=== PATIENT | female | born 1940 | race Caucasian/White ===

== ENCOUNTER → 2016-12-11 | Outpatient (CLI) | payer BC ==
[~2016-12-11] MED LIST: ACET-1256 PO; ASPEC81 PO; ASPI-232 PO; ATEN50TA8 PO; CARBGEL OPB; CETI10TA84 PO; DICY1TAB25 PO; ISOS60TA25 PO; MISCCAP80 PO; NTRGSL/4 UT; POLY335025 PO; POLYSOL4 OP; PRAV80TA PO; PRLSR20 PO
[2016-12-11 10:10] LABS: CHOLESTEROL/HDL RATIO 2.8
[2016-12-11 10:22] LABS: ESTIMATED AVERAGE GLUCOSE 111 mg/dl; HA1C FLAG Normal (Normal)
== END | disposition home or self-care (01) ==
LOC: C.LAB 08:30
PROVIDERS: ATTEND Internal Medicine Cardiovascular Disease
DX: Z86.39 Personal history of other endocrine, nutritional and metabolic disease (principal); I10 Essential (primary) hypertension; R73.01 Impaired fasting glucose

== ENCOUNTER → 2017-02-01 | Outpatient (CLI) | payer BC ==
[2017-02-01 15:08] LABS: BLOOD UREA NITROGEN 20 mg/dl (7-18); BUN/CREATININE RATIO 20.7 (10-20); CALCIUM 8.7 mg/dl (8.5-10.1); CARBON DIOXIDE 29 mmol/L (21-32); CHLORIDE 108 mmol/L (98-107); CREATININE 0.94 mg/dl (0.60-1.20); GLUCOSE 102 mg/dl (70-99); POTASSIUM 4.2 mmol/L (3.5-5.1); SODIUM 142 mmol/L (136-145)
== END | disposition home or self-care (01) ==
LOC: C.LAB 13:13
PROVIDERS: ATTEND Internal Medicine
DX: I10 Essential (primary) hypertension (principal); Z12.31 Encounter for screening mammogram for malignant neoplasm of breast

== ENCOUNTER → 2017-02-01 | Outpatient (CLI) | payer BC ==
--- NOTE | 2017-02-01 16:05 | MAMMOGRAPHY REPORT ---
BILATERAL DIGITAL SCREENING MAMMOGRAM WITH CAD: 02/01/2017 CLINICAL HISTORY: Routine screening. Patient has no complaints. TECHNIQUE: Bilateral CC and MLO views were obtained. Current study was also evaluated with a Comput er Aided Detection (CAD) system. COMPARISON: Comparison is made to exams dated: 01/30/2016 mammogram, 01/26/2014 mammogram, 01/28/2015 mammogram, 01/21/2012 mammogram, 01/19/2011 mammogram, and 01/17/2010 mammogram - [facility]. BREAST COMPOSITION: There are scattered areas of fibroglandular density in both breasts. FINDINGS: There are moderate vascular calcifications in the breasts. A stable benign coarse calcifi cation in the right breast. No new suspicious mass, architectural distortion or cluster of microcal cifications is seen. IMPRESSION: ACR BI-RADS CATEGORY 1: NEGATIVE There is no mammographic evidence of malignancy. A 1 year screening mammogram is recommended. The p atient will receive written notification of the results. Approximately 10% of breast cancers are not detected with mammography. A negative mammographic repor t should not delay biopsy if a clinically suggestive mass is present. Aleah Chua M.D. ay/:02/01/2017 15:09:02 Roundsman: Demi VILLALBA(R)(M), [facility] letter sent: Normal 1/2 BI-RADS Code: ACR BI-RADS Category 1: Negative
== END | disposition home or self-care (01) ==
LOC: C.MAMM 14:50
PROVIDERS: ATTEND Obstetrics & Gynecology
DX: Z12.31 Encounter for screening mammogram for malignant neoplasm of breast (principal)

== ENCOUNTER → 2017-02-04 | Outpatient (CLI) | payer BC ==
[~2017-02-04] MED LIST changes: +OPTIRAY 320 IV PRN
--- NOTE | 2017-02-05 07:31 | DIAGNOSTIC IMAGING REPORT ---
CT SCAN OF THE ABDOMEN AND PELVIS WITH IV CONTRAST CLINICAL HISTORY: Chronic reflux esophagitis. Generalized diffuse abdominal pain. Nausea. COMPARISON STUDY: Abdominal CT dated 12/17/2007. TECHNIQUE: Following the IV administration of 93 cc of Optiray 320, CT scan of the abdomen and pelvis is performed from the lung bases to the proximal femora. Images are reviewed in the axial, sagittal, and coronal planes. IV contrast was administered without complication. Automated dose control exposure was utilized. CT DOSE: 530.01 mGycm FINDINGS: Lung bases: The heart is normal in size and without pericardial effusion. A 2 mm right middle lobe pulmonary nodule seen on image #1 is unchanged from 2008 and is of doubtful significance. Linear atelectasis versus scarring is present in the lower lobes. There is minimal dependent atelectasis. No airspace consolidation is seen typical for pneumonia and there is no pleural effusion. Liver: The contrast-enhanced liver is normal in size, contour, and attenuation. There is no intrahepatic biliary ductal dilatation. The hepatic veins and portal veins are patent. Gallbladder: Unremarkable. Spleen: Normal in size and attenuation. Pancreas: Moderately atrophic. Adrenal glands: Unremarkable. Kidneys: The contrast enhanced kidneys are atrophic and without hydronephrosis. A small extrarenal pelvis is noted bilaterally. The kidneys enhance symmetrically. Scattered subcentimeter cortical hypodensities likely represent cysts but are too small for definitive characterization. Abdominal vasculature: The abdominal aorta is normal in course and caliber noting moderate to advanced atherosclerotic calcification. Bowel: The small bowel and colon are normal in course and caliber. There is moderate colonic fecal retention. The appendix is well-visualized and normal. Peritoneum: There is no intraperitoneal free air or abdominal ascites. Lymphadenopathy: None. Pelvic viscera: The bladder, uterus, and adnexa are normal as visualized. Skeletal structures: The skeletal structures are osteopenic. There is mild to moderate lumbosacral spondylosis. No lytic or blastic lesions are seen. IMPRESSION: 1. There are no acute infectious or inflammatory findings in the abdomen or pelvis. 2. Moderate constipation. Electronically signed by: Kt Agudelo M.D. 02/04/2017 2:38 PM Dictated Date/Time: 02/04/2017 2:33 PM
== END | disposition home or self-care (01) ==
LOC: C.CTS 13:31
PROVIDERS: ATTEND Internal Medicine
DX: K21.0 Gastro-esophageal reflux disease with esophagitis (principal); R10.9 Unspecified abdominal pain; K59.00 Constipation, unspecified

== ENCOUNTER → 2017-02-10 | Outpatient (CLI) | payer BC ==
[~2017-02-10] MED LIST changes: -OPTIRAY 320 IV PRN
--- NOTE | 2017-02-10 09:08 | DIAGNOSTIC IMAGING REPORT ---
GI W/AIR SMALL BOWEL ROUTINE CLINICAL HISTORY: K21.0 Chronic reflux esophagitisdysphagia COMPARISON STUDY: None FLUOROSCOPY TIME: 3.8 minutes. FINDINGS: Patient initiates swallowing function well. Stomach is normal. No significant reflux. Duodenal bulb fills well and is negative for ulceration. The duodenal sweep is unremarkable. Mucosal pattern and transit time throughout small bowel are unremarkable. Spot films the terminal ileum are unremarkable. IMPRESSION: Normal study Electronically signed by: Joe Bejarano M.D. 02/10/2017 9:06 AM Dictated Date/Time: 02/10/2017 9:03 AM
== END | disposition home or self-care (01) ==
LOC: C.RAD 07:04
PROVIDERS: ATTEND Internal Medicine
DX: K21.0 Gastro-esophageal reflux disease with esophagitis (principal)

== ENCOUNTER → 2017-03-22 | Outpatient (CLI) | payer BC | END | disposition home or self-care (01) | LOC: C.PAPS 16:07 | PROVIDERS: ATTEND Obstetrics & Gynecology | DX: R10.2 Pelvic and perineal pain (principal) ==

== ENCOUNTER 2017-05-20 13:02 | Observation (INO) | payer BC ==
[~2017-05-20] VITALS: Ht 149.9 cm; Wt 60.2 kg
[~2017-05-20 13:02] MED LIST changes: -ASPI-232 PO
[2017-05-20] MEDS ORDERED: NITROGLYCERIN OINT 2% 1GM PACKET EXT ONE (13:45)
[2017-05-20 13:48] LABS: HEMATOCRIT 41.6 % (37-47); MEAN CELL VOLUME 95.9 fL (80-100); MEAN CORPUSCULAR HEMOGLOBIN 32.5 pg (25-34); MEAN CORPUSCULAR HGB CONC 33.9 g/dl (32-36); MEAN PLATELET VOLUME 10.4 fL (7.4-10.4); PLATELET COUNT 225 K/uL (130-400); RED BLOOD COUNT 4.34 M/uL (4.2-5.4); WHITE BLOOD COUNT 6.84 K/uL (4.8-10.8)
[2017-05-20 14:02] LABS: PROTHROMBIN TIME (PATIENT) 10.3 SECONDS (9.0-12.0)
--- NOTE | 2017-05-20 14:06 | DIAGNOSTIC IMAGING REPORT ---
CHEST ONE VIEW PORTABLE CLINICAL HISTORY: Chest pain. COMPARISON STUDY: Chest radiograph January 25, 2016. FINDINGS: Lung volumes are normal. There is no consolidation. Pulmonary vascularity is normal. Cardiac size is normal. Mediastinal contours are normal. There is no pneumothorax or pleural effusion. IMPRESSION: No acute cardiopulmonary findings. Electronically signed by: Pascual Day M.D. 05/20/2017 2:05 PM Dictated Date/Time: 05/20/2017 2:04 PM
[2017-05-20 14:10] LABS: BUN/CREATININE RATIO 13.9 (10-20); CALCIUM 8.7 mg/dl (8.5-10.1); CREATININE 0.91 mg/dl (0.60-1.20)
[2017-05-20 14:15] LABS: ALB/GLOB RATIO 0.9 (0.9-2)
[2017-05-20] MEDS ORDERED: ONDANSETRON INJ 2 MG/ML 2 ML VIAL IV STA (15:05)
[2017-05-20] MEDS ORDERED: FENTANYL CITRATE INJ 50 MCG/1 ML 2 ML VIAL IV STA (15:05)
[2017-05-20] MEDS ORDERED: ASPI-232 PO (15:09)
[2017-05-20] MEDS ORDERED: ACETAMINOPHEN 325 MG TAB PO PRN (16:15)
[2017-05-20] MEDS ORDERED: ONDANSETRON INJ 2 MG/ML 2 ML VIAL IV PRN (16:15)
[2017-05-20] MEDS ORDERED: ALUMINUM/MAGNESIUM/SIMETH (MAALOX MAX) 30 ML UDC PO PRN (16:15)
[2017-05-20] MEDS ORDERED: POLYETHYLENE (MIRALAX) 17 GM PACK PO PRN (16:15)
[2017-05-20] MEDS ORDERED: MAGNESIUM HYDROXIDE SUSP 30 ML UDC PO PRN (16:15)
--- NOTE | 2017-05-20 16:20 | History and Physical ---
History & Physical Date & Time of Service: May 20, 2017 at 16:20 Chief Complaint: Chest Pain Primary Care Physician: Jeferson Anthony M.D. History of Present Illness Source: patient Ms. Marcus is a 76 y/o female with PMHx of CAD S/P Stent x 3, HTN, GERD, and Irritable Bowel Syndrome-Constipation who presents to the ED c/o intermittent L- sided CP x 1 week. She states that this past week the pain has been in the L- side of the chest and is tight in quality. This past week the pain has been coming on with rest and she states it is not worsened with exertion. She states up until today this chest pain would only last a couple minutes and rasheed spontaneously. As well, her normal anginal pain would be easily relieved with her SL nitro. Today, the chest pain came on suddenly and radiated into her L jaw /face and into her L arm. She has associated tingling in the L lower face and upper arm. Denies motor dysfunction. She has taken a total of 4 nitroglycerin without relief. She reports a chronic cough related to post-nasal drip that is unchanged. She does note that she has had a hoarse voice for approx. 1 month. She is on acid reducing medication and reports that she normally doesn't have bad GERD. She does have a history of IBS-C and states she had an EGD in the past that didn't reveal much. She has no difficulty swallowing liquids or solids. at bedside reports increased stress as her brother just recently passed this week and patient did get teared up when discussing this. She denies fever/chills, SOB, N/V, abdominal pain, dysuria, diarrhea, melena/ hematochezia. In the ED, she is afebrile without leukocytosis. Initial troponin unremarkable. EKG with NSR with some PVCs and some nonspecific ST abnormalities. 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 Surgical Problems: (1) Percutaneous Translum Coron Angioplasty Status Status: Resolved Family History Cancer Diabetes mellitus FHx: gallbladder disease Heart disease Hypertension Lung disease Social History Smoking Status: Never Smoker Drug Use: none Marital Status: Occupational Status: retired Immunizations History of Influenza Vaccine: Yes History of Tetanus Vaccine?: Yes History of Pneumococcal: Yes Pneumococcal Date: Jan 31, 2010 History of Hepatitis B Vaccine: No Multi-Drug Resistant Organisms History of MDRO: No Allergies Coded Allergies: Acarides (Mites) (Verified Allergy, Unknown, 05/18/16) Dust (Verified Allergy, Unknown, 05/18/16) Tetracyclines (Verified Allergy, Unknown, 05/18/16) Morphine (Verified Adverse Reaction, Unknown, GI ISSUES, 05/18/16) Home Medications Scheduled Aspirin (Aspir-81), 1 TAB PO DAILY Atenolol (Tenormin), 50 MG PO QAM Carboxymethylcellulose-Hyprome (Genteal), 1 DOSE OPB HS Cetirizine (Zyrtec), 10 MG PO DAILY Dicyclomine HCl (Dicyclomine HCl), 20 MG PO DAILY Isosorbide Mononitrate Ext Rel (Imdur Ext Rel), 60 MG PO QAM Nitroglycerin (Nitrostat), 0.4 MG UT PRN Omeprazole (Prilosec), 20 MG PO BID Polyethylene Glycol 3350 (Miralax), 1 DOSE PO QAM Polyethylene Glycol-Propylene (Systane), 1 DROPS OP QID Pravastatin Sodium (Pravachol), 1 TAB PO HS Probiotic Product (Probiotic), 1 CAP PO QAM Scheduled PRN Acetaminophen (Tylenol), 500 MG PO DIRECTED PRN for Pain Review of Systems Constitutional: No fever, No chills Eyes: No worsening of vision ENT: + nasal symptoms (post-nasal drip - chronic), No sore throat, No trouble swallowing Respiratory: + cough, No shortness of breath Cardiovascular: + chest pain, No palpitations Abdomen: No pain, No nausea, No vomiting, No diarrhea, No constipation Musculoskeletal: + swelling (chronic ankle edema), No calf pain Genitourinary - Female: No dysuria Neurologic: + numbness/tingling (L face and into L arm) Hematologic / Lymphatic: No abnormal bleeding/bruising, No clotting problems Integumentary: No rash Physical Exam Vital Signs Date Time Temp Pulse Resp B/P (MAP) Pulse Ox O2 Delivery O2 Flow Rate FiO2 05/20/17 15:25 71 20 145/71 98 Room Air 05/20/17 14:29 72 20 162/80 99 Room Air 05/20/17 13:36 70 05/20/17 13:28 98 Room Air 05/20/17 13:28 73 16 157/90 98 Room Air 05/20/17 13:24 97 Room Air 05/20/17 13:20 98 Room Air 05/20/17 13:04 100 Room Air 05/20/17 13:03 36.9 83 17 196/95 100 Room Air General Appearance: WD/WN, no apparent distress Head: normocephalic, atraumatic Eyes: sclerae normal ENT: hearing grossly normal Neck: supple, no JVD, trachea midline Respiratory/Chest: lungs clear, normal breath sounds, no respiratory distress, no accessory muscle use, + pertinent finding (mild chest tenderness to palpation but did not reflect CP that brought her in) Cardiovascular: regular rate, rhythm, no gallop, no murmur Abdomen/GI: normal bowel sounds, non tender, soft Back: no CVA tenderness, no muscle spasm Extremities/Musculoskelatal: no calf tenderness, no pedal edema, + swelling ( minimal bilateral non-pitting edema of medial ankle) Neurologic/Psych: alert, oriented x 3 Skin: normal color, warm/dry, + pertinent finding (no erythema/vesicles overlying CP region) Diagnostics Laboratory Results Results Past 24 Hours Test 05/20/17 13:25 05/20/17 13:37 Range/Units White Blood Count 6.84 4.8-10.8 K/uL Red Blood Count 4.34 4.2-5.4 M/uL Hemoglobin 14.1 12.0-16.0 g/dL Hematocrit 41.6 37-47 % Mean Corpuscular Volume 95.9 80-100 fL Mean Corpuscular Hemoglobin 32.5 25-34 pg Mean Corpuscular Hemoglobin Concent 33.9 32-36 g/dl RDW Standard Deviation 44.0 36.4-46.3 fL RDW Coefficient of Variation 12.5 11.5-14.5 % Platelet Count 225 130-400 K/uL Mean Platelet Volume 10.4 7.4-10.4 fL Prothrombin Time 10.3 9.0-12.0 SECONDS Prothromb Time International Ratio 1.0 0.9-1.1 Activated Partial Thromboplast Time 25.7 21.0-31.0 SECONDS Partial Thromboplastin Ratio 1.0 Sodium Level 140 136-145 mmol/L Potassium Level 4.0 3.5-5.1 mmol/L Chloride Level 107 98-107 mmol/L Carbon Dioxide Level 27 21-32 mmol/L Anion Gap 6.0 3-11 mmol/L Blood Urea Nitrogen 13 7-18 mg/dl Creatinine 0.91 0.60-1.20 mg/dl Est Creatinine Clear Calc Drug Dose 40.7 ml/min Estimated GFR () 70.0 Estimated GFR (Non- 60.4 BUN/Creatinine Ratio 13.9 10-20 Random Glucose 127 70-99 mg/dl Calcium Level 8.7 8.5-10.1 mg/dl Total Bilirubin 0.8 0.2-1 mg/dl Aspartate Amino Transf (AST/SGOT) 20 15-37 U/L Alanine Aminotransferase (ALT/SGPT) 26 12-78 U/L Alkaline Phosphatase 64 45-117 U/L Total Creatine Kinase 80 26-192 U/L Creatine Kinase MB 0.8 0.5-3.6 ng/ml Creatine Kinase MB Ratio 1.0 0-3.0 Total Protein 7.5 6.4-8.2 gm/dl Albumin 3.5 3.4-5.0 gm/dl Globulin 4.0 2.5-4.0 gm/dl Albumin/Globulin Ratio 0.9 0.9-2 Bedside Troponin I < 0.030 0-0.045 ng/ml Diagnostic Radiology CHEST ONE VIEW PORTABLE CLINICAL HISTORY: Chest pain. COMPARISON STUDY: Chest radiograph January 25, 2016. FINDINGS: Lung volumes are normal. There is no consolidation. Pulmonary vascularity is normal. Cardiac size is normal. Mediastinal contours are normal. There is no pneumothorax or pleural effusion. IMPRESSION: No acute cardiopulmonary findings. EKG Sinus rhythm with occasional , and consecutive Premature ventricular complexes Abnormal ECG When compared with ECG of 20-MAY-2017 13:00, (unconfirmed) Premature ventricular complexes are now Present Impression Assessment and Plan Ms. Marcus is a 76 y/o female with PMHx of CAD S/P Stent x 3, HTN, GERD, and Irritable Bowel Syndrome-Constipation who presents to the ED c/o intermittent L- sided CP x 1 week. CP today is similar to the intermittent episodes that have occurred this week but today did not resolve and took 4 SL Nitros without relief Atypical Chest Pain with H/O CAD S/P Stent x 3: ACS vs Musculoskeletal vs GI ( IBS-C) vs Somatic (Stress) - Chest is minimally tender to palpation but states the pain was not the same as the CP she has been experiencing that brought her in. -- Denies GERD symptoms, MS symptoms, but does have IBS-C, chronic cough due to post-nasal drip, and voice hoarseness -- No overlying skin vesicles or erythema -- Given recent of her brother this may be somatic in setting of stress - Given CAD history will R/O with telemetry monitoring and serial cardiac enzymes - Cath report reviewed which showed moderate CAD - NSS at 80 mL/hr - ASA 81 mg daily - Imdur 60 mg daily - Pravastatin 80 mg daily - Consult cardiology - recommendations for stress testing or intervention -- Patient reports she cannot do the treadmill and had a dobutamine stress in the past - had cath in 2016 HTN: - Atenolol 50 mg daily GERD: - Protonix 40 mg BID IBS-C: - Miralax daily and Bentyl 20 mg daily PRN DVT Prophylaxis: Lovenox daily Code Status: FULL RESUSCITATION Disposition: Likely home tomorrow - unsure if stress testing is necessary and will await cardiology input given CAD history Resident Physician Supervision Note: I was present with Anali CERVANTES during the history and exam. I discussed the case with the PA, pt and at bedside and agree with the findings and plan as documented in the note. Any exceptions or clarifications are listed here: 76 y/o F with diffuse CAD, previous stents - presents with intermittent CP x 1 week - progressive and occurs at rest or with exertion - admits to SOB - denies N/V/diaphoresis OE Emotionally distressed elderly F AAO x 3 S1,2 R CTAB NT, ND, BS + No CCE P: Monitor on tele with serial trops - utility of stress test unclear as pain is ongoing and she has a clear histiry of CAD - we will therefore consult cardiology for further recs Cont Atenolol for HTN Documented By: Kevin Hurtado Level of Care Telemetry Resuscitation Status FULL RESUSCITATION VTE Prophylaxis VTE Risk Assessment Done? Y/N: Yes Risk Level: Moderate Given or contraindicated: Enoxaparin (Lovenox)SQ, T.E.D. Stockings, SCD's
[2017-05-20 16:47] VITALS: O2SAT 98
--- NOTE | 2017-05-20 18:00 | EMERGENCY ROOM VISIT NOTE ---
History Report prepared by Herminio: Kristine Yepez Under the Supervision of: Dr. Morgan Newby M.D. First contact with patient: 13:28 Chief Complaint: CHEST PAIN Stated Complaint: CHEST PAIN Nursing Triage Summary: off and on for a week made her come. states substernal with pain in the left arm and neck into jaw and back. states she takes a NtG and it would go away but would come back has taken 4 SL today. pain came on when sitting and moving. continues to have pain in the chest and left side History of Present Illness The patient is a 76 year old female who presents to the Emergency Room with complaints of intermittent chest pain beginning 1 week ago. She describes the pain as being tight and rates it at a 1/10 right now. The patient reports that she takes nitroglycerin for her chest pain and that it usually goes away. She reports that she has a chronic cough for years and always have ankle swelling. The patient denies fevers, cold-like symptoms, and shortness of breath. The patient also reports that she has a stent placed but still has 4 other arteries with blockages. Source of History: patient Onset: 1 week ago Position: chest Symptom Intensity: rated at a 1/10 Quality: other (tight ) Timing: intermittent Modifying Factors (Relieving): other (nitroglycerin) Associated Symptoms: + cough (chronic ), No fevers, No SOB Note: additional symptom: chronic ankle swelling also denies: cold-like symptoms Review of Systems See HPI for pertinent positives & negatives. A total of 10 systems reviewed and were otherwise negative. Past Medical & Surgical Medical Problems: (1) Angina Pectoris Nec/Nos (2) CAD (coronary artery disease) (3) Chr Ischemic Hrt Dis Nos (4) Coron Atheroscler Nos Type Vessel, [place] (5) Esophageal Reflux (6) Hypertension Nos (7) Hypothyroidism Nos (8) Irritable Bowel Syndrome (9) Lumbago (10) Mixed Hyperlipidemia (11) Old Myocardial Infarct (12) Osteoporosis Nos (13) Periph Vascular Dis Nos Surgical Problems: (1) Percutaneous Translum Coron Angioplasty Status Family History Cancer Diabetes mellitus FHx: gallbladder disease Heart disease Hypertension Lung disease Social History Smoking Status: Never Smoker Alcohol Use: none Drug Use: none Marital Status: Housing Status: lives with significant other Occupation Status: retired Current/Historical Medications Scheduled Aspirin (Aspir-81), 1 TAB PO DAILY Atenolol (Tenormin), 50 MG PO QAM Carboxymethylcellulose-Hyprome (Genteal), 1 DOSE OPB HS Cetirizine (Zyrtec), 10 MG PO DAILY Dicyclomine HCl (Dicyclomine HCl), 20 MG PO DAILY Isosorbide Mononitrate Ext Rel (Imdur Ext Rel), 60 MG PO QAM Nitroglycerin (Nitrostat), 0.4 MG UT PRN Omeprazole (Prilosec), 20 MG PO BID Polyethylene Glycol 3350 (Miralax), 1 DOSE PO QAM Polyethylene Glycol-Propylene (Systane), 1 DROPS OP QID Pravastatin Sodium (Pravachol), 1 TAB PO HS Probiotic Product (Probiotic), 1 CAP PO QAM Scheduled PRN Acetaminophen (Tylenol), 500 MG PO DIRECTED PRN for Pain Allergies Coded Allergies: Acarides (Mites) (Verified Allergy, Unknown, 05/18/16) Dust (Verified Allergy, Unknown, 05/18/16) Tetracyclines (Verified Allergy, Unknown, 05/18/16) Morphine (Verified Adverse Reaction, Unknown, GI ISSUES, 05/18/16) Physical Exam Vital Signs Date Time Temp Pulse Resp B/P (MAP) Pulse Ox O2 Delivery O2 Flow Rate FiO2 05/20/17 16:02 75 14 99 05/20/17 16:01 151/99 05/20/17 15:47 70 13 99 05/20/17 15:32 75 14 99 05/20/17 15:25 71 20 145/71 98 Room Air 05/20/17 15:17 70 15 99 05/20/17 15:02 69 13 97 05/20/17 15:01 145/71 05/20/17 14:47 67 16 98 05/20/17 14:32 67 18 05/20/17 14:29 72 20 162/80 99 Room Air 05/20/17 14:17 77 21 97 05/20/17 14:02 74 13 98 05/20/17 14:01 162/80 05/20/17 13:47 70 17 97 05/20/17 13:36 70 05/20/17 13:32 99 14 05/20/17 13:28 98 Room Air 05/20/17 13:28 73 16 157/90 98 Room Air 05/20/17 13:27 157/90 05/20/17 13:24 97 Room Air 05/20/17 13:20 98 Room Air 05/20/17 13:04 100 Room Air 05/20/17 13:03 36.9 83 17 196/95 100 Room Air Physical Exam Constitutional: Vital signs reviewed. Eyes: Pupils are equal round reactive to light. Conjunctiva are noninjected. ENT: Pharynx is clear without erythema or exudate. Mucous membranes are moist. Neck supple without meningeal signs. Respiratory: Clear to auscultation bilaterally. Breath sounds are equal bilaterally. Cardiovascular: Regular rate and rhythm. No rubs or gallops. GI: Soft, nondistended and nontender. Bowel sounds are present. Musculoskeletal: No peripheral edema. No lower extremity tenderness. Integumentary: No cyanosis. Neurological: The patient is awake and alert. No focal deficits. Psychiatric: Normal affect. Medical Decision & Procedures ER Provider Diagnostic Interpretation: X-ray results as stated below per interpretation by me and the radiologist: CHEST ONE VIEW PORTABLE CLINICAL HISTORY: Chest pain. COMPARISON STUDY: Chest radiograph January 25, 2016. FINDINGS: Lung volumes are normal. There is no consolidation. Pulmonary vascularity is normal. Cardiac size is normal. Mediastinal contours are normal. There is no pneumothorax or pleural effusion. IMPRESSION: No acute cardiopulmonary findings. Electronically signed by: Pascual Day M.D. 05/20/2017 2:05 PM Dictated Date/Time: 05/20/2017 2:04 PM Laboratory Results 05/20/17 13:25 05/20/17 13:25 Test 05/20/17 13:25 05/20/17 13:37 Red Blood Count 4.34 M/uL (4.2-5.4) Mean Corpuscular Volume 95.9 fL (80-100) Mean Corpuscular Hemoglobin 32.5 pg (25-34) Mean Corpuscular Hemoglobin Concent 33.9 g/dl (32-36) RDW Standard Deviation 44.0 fL (36.4-46.3) RDW Coefficient of Variation 12.5 % (11.5-14.5) Mean Platelet Volume 10.4 fL (7.4-10.4) Prothrombin Time 10.3 SECONDS (9.0-12.0) Prothromb Time International Ratio 1.0 (0.9-1.1) Activated Partial Thromboplast Time 25.7 SECONDS (21.0-31.0) Partial Thromboplastin Ratio 1.0 Anion Gap 6.0 mmol/L (3-11) Est Creatinine Clear Calc Drug Dose 40.7 ml/min Estimated GFR () 70.0 Estimated GFR (Non- 60.4 BUN/Creatinine Ratio 13.9 (10-20) Calcium Level 8.7 mg/dl (8.5-10.1) Total Bilirubin 0.8 mg/dl (0.2-1) Aspartate Amino Transf (AST/SGOT) 20 U/L (15-37) Alanine Aminotransferase (ALT/SGPT) 26 U/L (12-78) Alkaline Phosphatase 64 U/L (45-117) Total Creatine Kinase 80 U/L (26-192) Creatine Kinase MB 0.8 ng/ml (0.5-3.6) Creatine Kinase MB Ratio 1.0 (0-3.0) Total Protein 7.5 gm/dl (6.4-8.2) Albumin 3.5 gm/dl (3.4-5.0) Globulin 4.0 gm/dl (2.5-4.0) Albumin/Globulin Ratio 0.9 (0.9-2) Bedside Troponin I < 0.030 ng/ml (0-0.045) Laboratory results as reviewed by me. Medications Administered Medications (Trade) Dose Ordered Sig/Basim Route Start Time Stop Time Status Last Admin Dose Admin Nitroglycerin (Nitroglycerin 2% Oint) 1 inch NOW ONCE EXT 05/20/17 13:45 05/20/17 13:46 DC 05/20/17 14:28 1 INCH Fentanyl Citrate (Fentanyl Inj) 25 mcg NOW STAT IV 05/20/17 15:05 05/20/17 15:07 DC 05/20/17 15:45 25 MCG Ondansetron HCl (Zofran Inj) 4 mg NOW STAT IV 05/20/17 15:05 05/20/17 15:07 DC 05/20/17 15:45 4 MG ECG Indication: chest pain Rate (beats per minute): 79 Rhythm: normal sinus Findings: ST depression (slight ST depressions in V5 and V6), no ectopy Comparison ECG Date: Change: comparison ECG: sinus rhythm, 73, minimal ST depressions in V5 and V6 unchanged from prior ED Course 1340: The patient was evaluated in room C5. A complete history and physical exam was performed. 1345: Ordered Nitroglycerin 1 inch EXT. 1505: Ordered Ondansetron HCl 4 mg IV, Fentanyl Inj 25 mcg IV. 1510: I spoke with Dr. Hurtado. We discussed the patient and her results. 1530: The patient says that she still has a little bit of pain. 1540: The patient will be further evaluated by Dr. Hurtado. Medical Decision This is a 76-year-old female who presents with chest pain. Differential diagnosis includes unstable angina, NE, pleurisy, GERD, pneumonia. I did perform a limited focused review of portions of the patient's old chart on the electronic medical record. The patient has had no recent pertinent visits to this hospital. Blood Pressure Screening: Patient was found to have an elevated blood pressure and was referred to their primary doctor for recheck and further treatment. Medication Reconciliation: I attest that I have personally reviewed the patient' s current medication list. I did evaluate the patient as noted above. The patient has a history of CAD and stent. She is presenting with exertional chest pain relieved with nitroglycerin. She did have nitroglycerin prior to arrival but complains of 110 chest pain. IV access was established. The patient was placed on a continuous fisheries officer. I did treat her with nitroglycerin paste. I did order and personally review the patient's 12-lead EKG and chest x-ray as described above. Her twelve-lead EKG demonstrates some minimal ST depressions in leads V5 and V6. I did order and review the patient's blood work as noted in the electronic medical record. Initial troponin is negative. I did reassess the patient. She continues to have very minimal chest pain. A repeat EKG was performed which per my interpretation shows no changes from her prior EKG. She was given fentanyl and Zofran IV. I did discuss the test results with the patient. I did recommend hospitalization. I did discuss case with the hospitalist and renal case manager. Consults Time Called: 1430 Consulting Physician: Dr. Hurtado Returned Call: [address] Hurtado. We discussed the patient and her results. The patient will be further evaluated by Dr. Hurtado. Impression Primary Impression: Acute chest pain Additional Impression: Abnormal ECG Scribe Attestation The scribe's documentation has been prepared under my direct and personally reviewed by me in its entirety. I confirm that the note above accurately reflects all work, treatment, procedures, and medical decision making performed by me. Departure Information Dispostion Being Evaluated By Hospitalist Referrals Jeferson Anthony M.D. (PCP) Patient Instructions [facility] Problem Qualifiers
[2017-05-20 19:04] VITALS: BP 139/77; TEMP 36.9; Ht 149.9 cm; Wt 60.2 kg
[2017-05-20 19:06] VITALS: BP 162/85; PULSE 71; TEMP 37.1; O2SAT 98
[2017-05-20] MEDS ORDERED: ENOXAPARIN 40 MG/0.4 ML SYR SC SCH (20:00)
[2017-05-20] MEDS: SODIUM CHLORIDE 0.9% 1000ML 1,000 ML IV SCH (20:38)
[2017-05-20] MEDS: PANTOprazole SOD 40 MG TAB PO SCH (20:39)
[2017-05-20] MEDS: ARTIFICIAL TEARS OP SOLN OP SCH ×4 (20:39→20:41)
[2017-05-20] MEDS ORDERED: PRAVASTATIN SOD 40 MG TAB PO SCH (21:00)
[2017-05-20] MEDS ORDERED: PANTOprazole SOD 40 MG TAB PO SCH (21:00)
[2017-05-20] MEDS ORDERED: POLYETHYLENE (MIRALAX) 17 GM PACK PO SCH (21:00)
[2017-05-20 23:35] VITALS: BP 154/72; PULSE 77; TEMP 36.9; O2SAT 96
[2017-05-21] MEDS: NITROGLYCERIN 0.4 MG SL PER TAB CHARGE SL PRN ×2 (03:55→04:04)
[2017-05-21 04:00] VITALS: BP 148/76; PULSE 70; TEMP 37; O2SAT 95
[2017-05-21] MEDS ORDERED: NURSING VERBAL MED ORDER ONE (05:15)
[2017-05-21] MEDS: SODIUM CHLORIDE 0.9% 1000ML 1,000 ML IV SCH (06:20)
[2017-05-21] MEDS: NITROGLYCERIN OINT 2% 1GM PACKET EXT SCH ×2 (06:21→14:10)
[2017-05-21 06:50] LABS: MEAN CELL VOLUME 94.2 fL (80-100); MEAN CORPUSCULAR HEMOGLOBIN 32.1 pg (25-34); MEAN CORPUSCULAR HGB CONC 34.1 g/dl (32-36); MEAN PLATELET VOLUME 10.3 fL (7.4-10.4); PLATELET COUNT 212 K/uL (130-400); RED BLOOD COUNT 4.14 M/uL (4.2-5.4); WHITE BLOOD COUNT 5.47 K/uL (4.8-10.8)
[2017-05-21 07:16] LABS: BUN/CREATININE RATIO 12.4 (10-20); CALCIUM 8.4 mg/dl (8.5-10.1); CREATININE 0.88 mg/dl (0.60-1.20); POTASSIUM 3.7 mmol/L (3.5-5.1)
[2017-05-21 07:26] VITALS: BP 134/74; PULSE 69; TEMP 37.1; O2SAT 97
[2017-05-21 07:26] LABS: THYROID STIMULATING HORMONE 1.69 uIu/ml (0.300-4.500)
[2017-05-21] MEDS: PANTOprazole SOD 40 MG TAB PO SCH (08:22)
[2017-05-21] MEDS: ARTIFICIAL TEARS OP SOLN OP SCH ×4 (08:27→14:09)
[2017-05-21] MEDS ORDERED: ASPIRIN 81 MG ECTAB PO SCH ×2 (09:00)
[2017-05-21] MEDS ORDERED: DICYCLOMINE HCL 20 MG TAB PO PRN (09:00)
[2017-05-21] MEDS ORDERED: LACTOBACILLUS ACIDOPHILUS (FLORANEX) TAB PO SCH (09:00)
[2017-05-21] MEDS ORDERED: DICYCLOMINE HCL 20 MG TAB PO SCH (09:00)
[2017-05-21] MEDS ORDERED: CETIRIZINE HCL 10 MG TAB PO SCH (09:00)
[2017-05-21] MEDS ORDERED: ISOSORBIDE MONONITRATE 60 MG TABCR PO SCH (09:00)
[2017-05-21 11:29] VITALS: BP 149/73; PULSE 65; TEMP 36.5; O2SAT 98
--- NOTE | 2017-05-21 12:17 | Cardiology Consultation ---
Cardiology Consultation Date of Service May 21, 2017. Cardiology Consultation Pertinent history Mrs. Marcus is a 76-year-old white female well known to me from the outpatient setting. The patient was admitted yesterday with a chest pain syndrome. This consultation was ordered to assist in her cardiac management. The patient's recent history began several weeks ago when she began to notice and intermittent left-sided chest discomfort. This would typically last for several minutes and had no other associated symptoms such as shortness of breath , nausea, vomiting, diaphoresis, or radiation of the discomfort. On the day of presentation, her left-sided chest discomfort became persistent. It radiated to her left neck, jaw, and down her left arm. She had no other associated symptoms. She attempted use of nitroglycerin, however, this did not improve her pain. Therefore, she presented to the emergency room for further care. Total duration of her discomfort was at least 20 hours. The patient has been under a great deal of emotional stress since late April as her brother . She feels that her chest pain syndrome could be related to her stress and anxiety levels. The patient's cardiac history began in the year 1999 when she presented with an acute coronary syndrome and had a stent placed in the mid LAD. She underwent a repeat cardiac catheterization in January 2016 which noted a 30 percent in stent restenosis. She had a 70 percent proximal 1st diagonal stenosis, a 20 percent proximal and 50 percent mid LCx stenosis, a 70 percent OM1 stenosis, and luminal irregularities in the proximal RCA. The patient has a chronic atypical chest pain syndrome. However, her anginal equivalent is typically left arm discomfort. The patient explains that her chest discomfort as described above resolved completely with the administration of topical nitropaste. Currently, she is resting comfortably in bed without complaints. Past medical history 1. Coronary artery disease-see above 2. LAD stent-April 2000 3. Chronic atypical chest pain syndrome 4. Anginal equivalent-left arm discomfort 5. Hypertension 6. Hypercholesterolemia 7. Hyperglycemia 8. GERD 9. Irritable bowel syndrome 10. CC 8 cervical radiculopathy 11. Lumbar spinal stenosis 12. Raynaud's phenomena 13. Rosacea 14. Allergic rhinitis 15. Osteoporosis 16. Ovarian cyst removal 17. History of D&C Medications 1. Atenolol 50 mg per day 2. Imdur 60 mg per day 3. Pravastatin 80 mg q.h.s. 4. Aspirin 81 mg daily 5. Lovenox 40 mg subcu daily 6. Nitropaste 1 inch q.6 hours 7. Protonix 40 milligrams b.i.d. 8. Zyrtec 10 mg daily 9. Floranex 4 tablets daily Allergies 1. Plavix-hives 2. Tetracyclines-hives Social history and lives with her No tobacco or alcohol Family history Positive for early coronary artery disease in her father Review of systems A 10 point review of systems was negative except for that described above. Physical examination Blood pressure is 134/74 with a regular pulse of 70. Respiratory rate is 18 and the patient is afebrile 37.1 degree Celsius. Saturation 97 percent on room air. HEENT exam is negative. Neck is supple with full carotid upstrokes. There are no carotid bruits. Jugular venous pressure is flat at 90 degrees. There is no thyromegaly. Cardiovascular exam reveals a regular rhythm with a normal S1 and S2. No S3, S4, or murmurs are noted. Lungs are clear without rales, rhonchi, or wheezes. Abdomen is soft and nontender without bruits. Extremities reveal intact radial artery and posterior tibial pulses bilaterally. There is no peripheral edema. Data CBC note hemoglobin of 13.3, hematocrit 39.0, white count 5.4, platelet count [id number]. Electrolytes showed a sodium of 140, potassium 3.7, chloride 110, bicarb 26, BUN 11, creatinine 0.8, glucose of 90. Three separate troponin I levels are undetectable at less than 0.015. Chest x-ray shows no acute disease. EKG notes normal sinus rhythm with a nonspecific ST abnormality. One of 3 tracings did show a PVC. Impression The patient is stable from a cardiovascular standpoint. Doubt that her chest pain syndrome represents myocardial ischemia as her troponin I level is undetectable, and her EKG shows no acute changes. However, she did note left arm discomfort which is her typical anginal equivalent. Recommend a stress echocardiogram to rule out significant myocardial ischemia. Plan 1. Continue current medications. 2. Stress echocardiogram on medications 3. Further recommendations depending on results of the stress test. Duration of the visit was greater than 45 minutes. More than 50 percent of the time was spent in counseling and education.
--- NOTE | 2017-05-21 15:27 | Discharge Instructions ---
Discharge Instructions Date of Service May 21, 2017. Admission Reason for Admission: Chest Pain Discharge Discharge Diagnosis / Problem: Chest pain, negative stress test Discharge Goals Goal(s): Improve function, Increase independence Activity Recommendations Activity Limitations: resume your previous activity Lifting Limitations: none Exercise/Sports Limitations: as tolerated May Resume Sexual Activity: when tolerated Shower/Bathe: no limitations Driving or Machine Use: no limitations . Instructions / Follow-Up Instructions / Follow-Up Medications: resume all prior home medications Chest pain: normal EKG, negative cardiac enzymes x 3 sets, negative stress test , cleared by cardiology for discharge FOLLOW UP - Dr. Anthony as previously scheduled, call for earlier appointment if chest pain continues to be an issue Current Hospital Diet Patient's current hospital diet: AHA Diet (Heart Healthy), Low Sodium Diet (2gm Na) Discharge Diet Recommended Diet: AHA Diet (Heart Healthy), Low Sodium Diet (2gm Na) Pending Studies Studies pending at discharge: no Laboratory Results Lipid Panel Test 05/21/17 06:28 Range/Units Triglycerides Level 88 0-150 mg/dl Cholesterol Level 166 0-200 mg/dl HDL Cholesterol 55 mg/dl Cholesterol/HDL Ratio 3.0 LDL Cholesterol, Calculated 93 mg/dl Medical Emergencies . Who to Call and When: Medical Emergencies: If at any time you feel your situation is an emergency, please call 911 immediately. . Non-Emergent Contact Non-Emergency issues call your: Primary Care Provider Call Non-Emergent contact if: you have any medication questions . . "Provider Documentation" section prepared by Phu Mora. . VTE Core Measure Inpt VTE Proph given/why not?: Enoxaparin (Lovenox)Alex KELLOGG, SCD's [place] Drug Monitoring Program Search Results: no issues identified
[2017-05-21 16:01] VITALS: BP 149/73; PULSE 65; TEMP 36.5; O2SAT 98
--- NOTE | 2017-05-21 17:16 | EXERCISE STRESS ECHO ---
*NOTICE TO RECEIVING CONSTITUTION PARTY AGENCY This information is strictly Confidential and protected under [place] law. [place] law prohibits you from making any further disclosure of this information unless further disclosure is expressly permitted by the written consent of the person to whom it pertains or is authorized by law. A general authorization for the release of medical or other information is not sufficient for this purpose. Hospital accepts no responsibility if the information is made available to any other person, INCLUDING THE PATIENT. Interpretation Summary * Name: GEENA ALVES Study Date: 05/21/2017 12:01 PM BP: 139/80 mmHg * Patient Location: C.2T\S\S241\S\1 HR: 65 * : 1940 (M/d/yyy) Gender: Female Height: 59 in * Age: 76 yrs Ethnicity: [place] Weight: 132 lb * Ordering Physician: Adalberto Carlson * Referring Physician: MEME * Performed By: Cassandra Andre RDCS * * Reason For Study: CHEST PAIN * BSA: 1.5 m2 * -- Conclusions -- * Stress Echo: * 1. No ischemic changes noted on stress echo at 81% MPHR. Cannot rule out ischemic changes at faster heart rates. Target heart rate was not attained. * 2. Abnormal exercise stress ECG at 81% MPHR, as noted below. * 3. Chest pain was present prior to exercise and remained constant throughout without worsening. * 4. No arrhythmia. * 5. Blunted blood pressure response to exercise. * 6. Good exercise tolerance. * Echo: * 1. Normal left ventricular size and systolic function. No definite wall motion abnormalities. EF 60-65%. No left ventricular hypertrophy. Type 1 diastolic dysfunction. * 2. Aortic valve sclerosis mild, without significant aortic valvular stenosis. * 3. There is mild to moderate mitral regurgitation. * 4. There is mild to moderate tricuspid regurgitation. * 5. Compared to prior study on 02/07/2015, wall motion appears similar. Mitral regurgitation now appears mild to moderate Procedure Details * ECHOEX, CPT #73219 Left Ventricle * The left ventricle is normal in size. * There is normal left ventricular wall thickness. * Left ventricular systolic function is normal. * The left ventricular ejection fraction increases normally with stress. The left ventricular end-systolic cavity size reduces post-stress (normal response). The left ventricular wall motion with stress is normal. * The basal anteroseptum appears akinetic in some views, however in other views it appears to have normal contractility, and thus appears to be artifactual. Overall, wall motion otherwise appears to be normal both in rest and stress images. Right Ventricle * The right ventricle is normal in size and function. * The right ventricular systolic function is normal as assessed by tricuspid annular plane systolic excursion (TAPSE) (normal >1.5 cm). Atria * The left atrial size is normal. * Right atrial size is normal. * There is no evidence of atrial septal defect, but resolution does not allow assessment for a patent foramen ovale. Mitral Valve * The mitral valve is grossly normal. * There is no mitral valve stenosis. * There is mild to moderate mitral regurgitation. Tricuspid Valve * The tricuspid valve is not well visualized, but is grossly normal. * There is no tricuspid stenosis. * There is mild to moderate tricuspid regurgitation. Aortic Valve * The aortic valve is trileaflet. * Aortic valve sclerosis mild, without significant aortic valvular stenosis. * No hemodynamically significant valvular aortic stenosis. * No aortic regurgitation is present. Pulmonic Valve * The pulmonary valve is inadequately visualized, but the Doppler data is adequate for interpretation. * There is no significant pulmonary regurgitation. Great Vessels * The aortic root is normal size. * Normal pulmonary venous flow pattern. Normal IVC size and respiratory collapse. Pericardium * There is no pericardial effusion. Stress Parameters * NSR 64 bpm. * No arrhythmia were noted with stress. * 0.5 -1 mm horizontal and upsloping ST depression in II, III, aVF, V5, and V6. ST segments returned to baseline by approximatedly 4 min 15 seconds into recovery. * Rest heart rate was '65' BPM. * Rest blood pressure was '139/80' * Maximum heart rate achieved was 116 bpm. * Maximum heart rate was 81 % of maximum age-predicted heart rate. * Maximum blood pressure was '148/78' * Total exercise time was '7:06' * Maximum exercise MET level achieved was '8.70' METS * Maximum treadmill speed was '3.40' miles per hour. * Maximum treadmill elevation was '14.00'% grade. * Exercise was terminated due to 'ACHIEVING TARGET HR' * Blunted blood pressure response to exercise. Left Ventricular Diastolic Function * Grade I diastolic dysfunction, (abnormal relaxation pattern). MMode 2D Measurements and Calculations IVSd 0.95 cm IVSs 1.0 cm LVIDd 5.0 cm LVPWd 0.89 cm LVPWs 1.3 cm IVS/LVPW 1.1 EDV(Teich) 117.5 ml EDV(cubed) 124.0 ml % IVS thick 4.8 % % LVPW thick 45.6 % LV mass(C)d 162.7 grams LV mass(C)dI 105.3 grams/m\S\2 Ao root diam 2.9 cm Ao root area 6.5 cm\S\2 LA dimension 2.9 cm LA/Ao 1.0 LVAd ap4 22.7 cm\S\2 LVLd ap4 6.8 cm EDV(MOD-sp4) 63.8 ml EDV(sp4-el) 63.9 ml LVAs ap4 13.0 cm\S\2 LVLs ap4 5.9 cm ESV(MOD-sp4) 28.0 ml ESV(sp4-el) 24.6 ml EF(MOD-sp4) 56.1 % EF(sp4-el) 61.4 % LVAd ap2 24.1 cm\S\2 LVLd ap2 7.5 cm EDV(MOD-sp2) 68.8 ml EDV(sp2-el) 65.9 ml LVAs ap2 13.3 cm\S\2 LVLs ap2 6.1 cm ESV(MOD-sp2) 26.4 ml ESV(sp2-el) 24.3 ml EF(MOD-sp2) 61.7 % EF(sp2-el) 63.1 % LVLd %diff 8.4 % EDV(MOD-bp) 68.4 ml LVLs %diff 4.6 % ESV(MOD-bp) 27.2 ml EF(MOD-bp) 60.2 % SV(MOD-sp4) 35.8 ml SI(MOD-sp4) 23.2 ml/m\S\2 SV(MOD-sp2) 42.4 ml SI(MOD-sp2) 27.4 ml/m\S\2 SV(MOD-bp) 41.2 ml SI(MOD-bp) 26.6 ml/m\S\2 SV(sp4-el) 39.2 ml SI(sp4-el) 25.4 ml/m\S\2 SV(sp2-el) 41.6 ml SI(sp2-el) 26.9 ml/m\S\2 Doppler Measurements and Calculations MV E max art 87.3 cm/sec MV A max art 106.7 cm/sec MV E/A 0.82 MV dec time 0.15 sec Ao V2 max 158.1 cm/sec Ao max PG 10.0 mmHg Ao max PG (full) 5.3 mmHg LV V1 max PG 4.7 mmHg LV V1 max 108.3 cm/sec TV E max art 49.2 cm/sec TR max art 246.3 cm/sec RVSP(TR) 27.4 mmHg RAP systole 3.0 mmHg
== END 2017-05-21 16:30 | disposition home or self-care (01) ==
LOC: C.EDB 13:03 → C.2T 16:16 → ENRESERV 16:58
PROVIDERS: ADMIT Internal Medicine; ATTEND Internal Medicine
DX: R07.9 Chest pain, unspecified (principal); I25.119 Atherosclerotic heart disease of native coronary artery with unspecified angina pectoris; I10 Essential (primary) hypertension; K21.9 Gastro-esophageal reflux disease without esophagitis; E03.9 Hypothyroidism, unspecified; K58.9 Irritable bowel syndrome, unspecified; M54.5 Low back pain; E78.2 Mixed hyperlipidemia; I25.2 Old myocardial infarction; M81.0 Age-related osteoporosis without current pathological fracture; I73.9 Peripheral vascular disease, unspecified; Z79.82 Long term (current) use of aspirin; Z79.899 Other long term (current) drug therapy; Z95.5 Presence of coronary angioplasty implant and graft

== ENCOUNTER → 2017-09-06 | Outpatient (CLI) | payer BC ==
[~2017-09-06] MED LIST changes: -ASPEC81 PO; +ASPI-232 PO
== END | disposition home or self-care (01) ==
LOC: C.MAMM 09:09
PROVIDERS: ATTEND Internal Medicine
DX: M81.0 Age-related osteoporosis without current pathological fracture (principal)

== ENCOUNTER → 2017-10-12 | Outpatient (CLI) | payer BC ==
--- NOTE | 2017-10-14 11:02 | CODING QUERY MEDICAL NECESSITY ---
CQTREATMENT RENDERED WITHOUT A DIAGNOSIS To promote full compliance with coding requirements relating to patient care, physician participation is requested in all cases of certified medical coder uncertainty. Please assist us with providing a diagnosis/symptom for the test(s) below: A diagnosis/symptom was not documented on your Order. A valid diagnosis/symptom is required to bill all insurances. Please remember that we are unable to code a diagnosis of rule out, probable, possible, questionable, or suspected. Tests that require a diagnosis: DOS 10/12/17 VITAMIN B12 TEST WESTERN BLOT LYME TEST Provider Signature: Date: Thank you Mariela [facility] Once completed, please kindly fax back to [phone] For questions please call [phone]
--- NOTE | 2017-11-16 07:14 | CODING QUERY MEDICAL NECESSITY ---
CQSUPPORTING DIAGNOSIS NEEDED A supporting diagnosis is required for the test/procedure performed on this patient in order for us to be reimbursed by the patient's insurance. Please provide a supporting diagnosis for the following test/procedure listed below next to the test name along with your signature. *If there is no additional diagnosis for this patient that would support the following test/procedure please document that below next to the test/procedure. Test(s)/Procedure(s) that require a supporting diagnosis: LAURIE 10/12/17 VITAMIN B12 TEST Provider Signature: Date: Thank you Mariela [facility] Once completed, please kindly fax back to [phone] For questions please call [phone]
== END | disposition home or self-care (01) ==
LOC: C.LABBC 14:32
PROVIDERS: ATTEND Internal Medicine
DX: G62.9 Polyneuropathy, unspecified (principal)

== ENCOUNTER → 2017-11-15 | Outpatient (CLI) | payer BC ==
--- NOTE | 2017-11-15 12:27 | DIAGNOSTIC IMAGING REPORT ---
MRI LUMBAR SPINE W/O CONTRAST CLINICAL HISTORY: Low back pain. Spinal stenosis. Left leg radiculopathy. TECHNIQUE: Sagittal and axial T1, T2 and STIR images were obtained. COMPARISON STUDY: No previous studies for comparison. OBSERVATIONS: The vertebral bodies and posterior elements appear intact. There is no abnormal bony signal present to suggest a marrow replacement process. L1-2: There is a minor circumferential disc bulge. There is no significant spinal or foraminal stenosis. L2-3: There is minor retrolisthesis of L2 on L3. There is a mild circumferential disc bulge present. There is very slight spinal canal narrowing, finding of doubtful acute clinical significance. There is no significant 13 mm cystic lesion at the foraminal stenosis L3-4: There is minimal retrolisthesis of L3 on L4. There is a mild circumferential disc bulge. There is no significant spinal or foraminal stenosis L4-5: There is a grade 1 spondylolisthesis of L4 and L5. There is a circumferential disc bulge. There is mild spinal stenosis. There is facet joint arthropathy. There is mild bilateral foraminal narrowing. L5-S1: There is a mild circumferential disc bulge. There is facet joint arthropathy. There is no significant spinal foraminal stenosis The conus medullaris and cauda equina appear normal. At the S2 level posteriorly, there is ar 13 mm lesion. No axial images were acquired through this level. While predominately cystic, there appears to be a few fatty elements. 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 IMPRESSION: 1. Multilevel spondylitic changes, most pronounced at the L4-5 level with mild spinal stenosis and mild bilateral foraminal narrowing 2. 13 mm prominently cystic lesion at the S2 level posteriorly. 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 Electronically signed by: Daniel Araya M.D. 11/15/2017 12:25 PM Dictated Date/Time: 11/15/2017 12:04 PM
== END | disposition home or self-care (01) ==
LOC: C.MRIBC 10:40
PROVIDERS: ATTEND Internal Medicine
DX: M47.9 Spondylosis, unspecified (principal); M48.061 Spinal stenosis, lumbar region without neurogenic claudication; M71.38 Other bursal cyst, other site

== ENCOUNTER → 2018-02-02 | Outpatient (CLI) | payer BC ==
--- NOTE | 2018-02-03 07:49 | MAMMOGRAPHY REPORT ---
BILATERAL DIGITAL SCREENING MAMMOGRAM TOMOSYNTHESIS WITH CAD: 02/02/2018 CLINICAL HISTORY: Routine screening. Patient has no complaints. TECHNIQUE: Breast tomosynthesis in addition to standard 2D mammography was performed. Current study was also evaluated with a Computer Aided Detection (CAD) system. COMPARISON: Comparison is made to exams dated: 02/01/2017 mammogram, 01/30/2016 mammogram, 01/28/2015 m ammogram, 01/26/2014 mammogram, 01/25/2013 mammogram, and 01/21/2012 mammogram - [facility]. BREAST COMPOSITION: There are scattered areas of fibroglandular density in both breasts. FINDINGS: There are moderate vascular calcifications in the breasts. No suspicious mass, architectur al distortion or cluster of microcalcifications is seen. IMPRESSION: ACR BI-RADS CATEGORY 1: NEGATIVE There is no mammographic evidence of malignancy. A 1 year screening mammogram is recommended. The pa tient will receive written notification of the results. Approximately 10% of breast cancers are not detected with mammography. A negative mammographic report should not delay biopsy if a clinically suggestive mass is present. Aleah Chua M.D. ay/:02/02/2018 16:06:34 Lead Caregiver: Teresa VILLALBA(Guera)(Manohar), [facility] letter sent: Normal 1/2 BI-RADS Code: ACR BI-RADS Category 1: Negative
== END | disposition home or self-care (01) ==
LOC: C.MAMM 14:40
PROVIDERS: ATTEND Obstetrics & Gynecology
DX: Z12.31 Encounter for screening mammogram for malignant neoplasm of breast (principal)

== ENCOUNTER 2025-01-27 08:45 | Observation (INO) ==
--- NOTE | 2025-01-27 09:08 | XRay Report ---
XR chest 1V portable CLINICAL HISTORY: Chest pain, nonspecific. COMPARISON STUDY: Chest March 25, 2024. FINDINGS: Lung volumes are normal. Lungs are clear. There is no pneumothorax or pleural effusion. Car diac size is stable. Mediastinal contours are normal. There is no evidence for pulmonary edema. IMPRESSION: No acute cardiopulmonary findings. ACT 112: Negative or not required by law. Electronically signed by: Pascual Day M.D. 01/27/2025 9:07 AM
[2025-01-27 09:15] LABS: Basophils # (auto) 0.08 K/uL (0.00-0.20); Basophils % (auto) 1.5 %; Eosinophils # (auto) 0.04 K/uL (0.00-0.50); Eosinophils % (auto) 0.8 %; Hematocrit (blood only) 39.7 % (37.0-47.0); Hemoglobin 13.5 g/dl (12.0-16.0); Immature Granulocytes # (auto) 0.01 K/uL (0.01-0.20); Immature Granulocytes % (auto) 0.2 %; Lymphocytes # (auto) 1.28 K/uL (1.20-3.40); Lymphocytes % (auto) 24.8 %; Mean Corpuscular Hemoglobin 32.8 pg (25.0-34.0); Mean Corpuscular Volume 96.4 fL (80.0-100.0); Mean Platelet Volume 10.1 fL (9.4-12.4); Monocytes # (auto) 0.48 K/uL (0.11-0.59); Monocytes % (auto) 9.3 %; Neutrophils # (auto) 3.28 K/uL (1.40-6.50); Neutrophils % (auto) 63.4 %; Platelet Count 228 K/uL (130-400); RDW Standard Deviation 42.8 fL (36.4-46.3); Red Blood Count 4.12 M/uL (4.20-5.40); White Blood Count 5.17 K/ul (4.8-10.8)
--- NOTE | 2025-01-27 09:19 | Emergency Department Note ---
Impression & Plan Chest pain ED Provider Note HISTORY OF PRESENT ILLNESS: Patient is an 84-year-old female presenting with chest pain. Patient reports that yesterday at 3:30 in the morning she was awoken from sleep with substernal chest pain that radiated into her left shoulder and left neck. She states that she took a nitroglycerin and pain improved. She states she had some similar pain throughout the day yesterday that only lasted for a few minutes. She states that again this morning she was woken up at 3:30 AM with substernal chest pain. She states that it radiates into her left shoulder and left neck. She has a history of CAD with a stent in place. She is on 81 mg aspirin daily. She states that she took 3 sublingual nitro prior to arrival. She states that her pain is still present, but has improved since onset and post nitro. She denies any shortness of breath, nausea or vomiting with the symptoms. She describes the pain as a pressure and dull ache. ROS: as above PHYSICAL EXAM: Constitutional: Patient appears in no acute distress. HENT: Head: Normocephalic and atraumatic. Eyes: EOMI, PERRL Mouth/Throat: Mucous membranes moist. Neck: Trachea midline. Neck supple. Cardiovascular: RRR, No murmurs, rubs or gallops. Intact distal pulses. Pulmonary/Chest: No respiratory distress. Breath sounds clear and equal bilaterally. No wheezes or rales. Abdominal: Abdomen soft, no tenderness, rebound or guarding. Musculoskeletal: No edema, tenderness or deformity noted. Skin: Warm and dry. No rash, erythema, pallor or cyanosis Psychiatric: Appropriate mood and affect for situation. Neurological: Alert and keenly responsive. CN II-XII grossly intact, moving all extremities equally and fully. MDM: - Vitals signs showed hypertension and tachycardia - History obtained via patient. History as above. - Chronic conditions affecting care: CAD (s/p PCI); HTN; HLD - Differential diagnoses include, but are not limited to: Acute coronary syndrome; pulmonary embolism; dissection; tension pneumothorax; esophageal rupture; pneumonia - Order placed for continuous cardiac monitoring. At this time, monitor showed rate of 84 bpm with normal sinus rhythm, per my interpretation. - External medical records reviewed. Cardiology office visit note dated 12/29/2024 was reviewed. Patient follows in the clinic for her CAD, hypertension and hyperlipidemia. She had no medication changes at that visit - EKG image interpreted by myself showed normal sinus rhythm. Rate 88 bpm. QT 344. No acute ischemic changes. - Laboratory workup interpreted by myself showed normal WBC; normal PT/INR; stable electrolytes; normal troponin; elevated BNP (113) - CXR image reviewed by myself negative for pneumonia, per my interpretation. - Repeat troponin within normal limits - UA negtive for infection - Discussed results with the patient. She did have another episode of chest pain while in the emergency department but is pain-free on reassessment. Will discuss case with hospitalist for further chest pain rule out, she has not had a recent stress test. - Moderate risk HEART score - Discussion was had with case management manager about patient's case and need for admission - Hospitalist consulted for admission - [facility] ASSESSMENT AND PLAN: Diagnosis: Chest pain Plan: Admit Past Med/Surg History Problem List (Updated 01/27/25 @ 14:16 by Tamia Padilla PA-C) Insomnia CAD (coronary artery disease) Arthritis Chronic constipation Fibromyalgia Impaired fasting glucose Peripheral neuropathy Rosacea Thoracic spondylosis IBS (irritable bowel syndrome) GERD (gastroesophageal reflux disease) Medical History Chest pain syndrome Poor historian Seasonal allergies Dry eyes Nausea after anesthesia Perineural cysts Raynaud phenomenon Osteoporosis Lumbar canal stenosis Irritable bowel syndrome Hypertension Hyperlipidemia Chronic hoarseness Surgical History Hx laparoscopic cholecystectomy S/P LASIK surgery Hx of dilation and curettage H/O colonoscopy Hx of cardiac cath Hx of cataract surgery H/O abdominal surgery Family History Father Acute myocardial infarction Myocardial infarction Brother Coronary heart disease Hypertension Unknown FHx: allergies FH: deafness or hearing loss Arteriosclerotic cardiovascular disease Cardiac disorder Sinusitis Cancer Hypertension Stroke Asthma Aunt Breast cancer Mother Myocardial infarction Uncle Myocardial infarction Grandfather (Paternal) Prostate cancer Grandmother Family history of diabetes mellitus Denies family history of Ovarian cancer Colorectal cancer Social History Smoking Status: Never smoker Second Hand Exposure: No; Do You Dip or Chew Tobacco: No; Hx Alcohol Use: No Hx Substance Use: No Preferred Language: Khmer Communication Ability: Effective Visual Impairment: Limited Hearing Ability: Use of Hearing Aid Adult Manager Required: No Beliefs That Will Affect Care: None marital status: Current Living Situation: Spouse current occupational status: retired How many Children do You have: 1 Feels Safe at Home: Yes Childhood Exposure to Second-Hand Smoke: Yes caffeine: No Dental Care, Regularly: Yes Physical Activity Frequency: 1-2 Times per Week Seatbelt Use: always Sunscreen Use: Yes Assistive Devices: Denture - Upper, Glasses and Hearing Aid - Bilateral Allergies Allergies Allergy/AdvReac Type Severity Reaction Status Date / Time atorvastatin Allergy Unknown ? PT NOT Verified 01/24/25 09:54 SURE cat dander Allergy Unknown "THEY SAID Verified 01/24/25 09:54 I WAS ALLERGIC TO CATS" clopidogrel [From Plavix] Allergy Unknown Hives Verified 01/24/25 09:54 corn Allergy Unknown ALLERGY Verified 01/24/25 09:54 TESTING SHOWED, PT REPORTS REACTION "NOTHING REALLY" duloxetine [From Cymbalta] Allergy Unknown ? PT NOT Verified 01/24/25 09:54 SURE gabapentin [From Neurontin] Allergy Unknown ? PT NOT Verified 01/24/25 09:54 SURE grass pollen Allergy Unknown 5 Verified 01/24/25 09:54 DIFFERENT KINDS OF GRASS- " I HAVE ALLERGIES ALL THE TIME" pregabalin [From Lyrica] Allergy Unknown ? PT NOT Verified 01/24/25 09:54 SURE simvastatin Allergy Unknown ? PT NOT Verified 01/24/25 09:54 SURE tramadol Allergy Unknown ? PT NOT Verified 01/24/25 09:54 SURE house dust AdvReac Unknown " I HAVE Verified 01/24/25 09:54 ALLERGIES ALL THE TIME" - VOICE HOARSENESS morphine AdvReac Unknown Nausea Verified 01/24/25 09:54 Tetracyclines AdvReac Unknown Nausea Verified 01/24/25 09:54 PERFUMES Allergy Unknown "SENSITIVE Uncoded 01/24/25 09:54 TOO" Home Meds Home Medications Medication Instructions Recorded Confirmed Saccharomyces boulardii 250 mg 250 mg PO DAILY 06/15/19 01/27/25 capsule cetirizine 10 mg tablet 10 mg PO DAILY PRN ALLERGIES 06/16/19 01/27/25 cholecalciferol (vitamin D3) 50 2,000 units PO QAM 06/16/19 01/27/25 mcg (2,000 unit) tablet cyanocobalamin (vitamin B-12) 100 100 mcg PO QAM 01/07/21 01/27/25 mcg tablet acetaminophen 650 mg 650 mg PO Q8H 04/18/21 01/27/25 tablet,extended release (Tylenol Arthritis Pain) polyethylene glycol 3350 17 17 g PO QPM constipation 10/15/21 01/27/25 gram/dose oral powder calcium carbonate 600 mg PO DAILY 04/05/24 01/27/25 food supplemt, lactose-reduced 1 ea PO DAILY 04/05/24 01/27/25 0.04 gram-1 kcal/mL oral liquid (Boost) propylene glycol 0.6 % eye drops 1 drp ophthalmic (eye) DAILY PRN 04/05/24 01/27/25 (Systane Balance) Dry Eyes aspirin 81 mg tablet,delayed 81 mg PO DAILY 01/27/25 01/27/25 release Previous Rx's Medication Instructions Recorded atenolol 50 mg tablet 50 mg PO QAM #90 tabs 06/16/24 amlodipine 2.5 mg tablet 2.5 mg PO DAILY #90 tabs 07/11/24 omeprazole 20 mg capsule,delayed 20 mg PO BID #180 caps 10/10/24 release pravastatin 80 mg tablet 80 mg PO QPM #90 tabs 10/10/24 isosorbide mononitrate 60 mg 60 mg PO QAM #90 tabs 12/29/24 tablet,extended release 24 hr nitroglycerin 0.4 mg sublingual 0.4 mg sublingual UD PRN chest 12/29/24 tablet pain #30 tabs doxycycline hyclate 100 mg tablet 200 mg (2 x 100 mg) PO ONCE #2 tabs 01/24/25 Results & Data (ED) Vital Signs Vital Signs - 24 hr 01/27/25 08:46 01/27/25 09:08 01/27/25 09:08 Temperature 36.5 C Temperature Source Skin Pulse Rate 95 H Pulse Rate [Apical] 94 H Pulse Rate from SpO2 Sensor Respiratory Rate 16 22 Respiratory Effort / Characteristics Non-Labored Spontaneous Respiratory Depth Normal Respiratory Pattern Regular Blood Pressure 169/103 H Blood Pressure [Left Arm] 148/93 H Blood Pressure Mean 125 Blood Pressure Mean [Left Arm] 111 Pulse Oximetry 100 100 100 Oxygen Delivery Method Room Air Room Air Room Air Sepsis Recent Fever Within 48 Hours No Sepsis New/Unexplained Change in Mental Status N/A Sepsis Action Taken by Nursing No Action Required 01/27/25 09:13 01/27/25 09:56 01/27/25 11:00 Temperature Temperature Source Pulse Rate 91 H 84 Pulse Rate [Apical] Pulse Rate from SpO2 Sensor Respiratory Rate 17 Respiratory Effort / Characteristics Respiratory Depth Respiratory Pattern Blood Pressure 130/76 Blood Pressure [Left Arm] Blood Pressure Mean 97 Blood Pressure Mean [Left Arm] Pulse Oximetry 99 Oxygen Delivery Method Room Air Sepsis Recent Fever Within 48 Hours Sepsis New/Unexplained Change in Mental Status Sepsis Action Taken by Nursing 01/27/25 11:30 01/27/25 11:48 01/27/25 12:09 Temperature Temperature Source Pulse Rate 85 90 65 Pulse Rate [Apical] Pulse Rate from SpO2 Sensor 82 87 64 Respiratory Rate 20 23 17 Respiratory Effort / Characteristics Respiratory Depth Respiratory Pattern Blood Pressure 125/80 132/66 117/65 Blood Pressure [Left Arm] Blood Pressure Mean 95 88 82 Blood Pressure Mean [Left Arm] Pulse Oximetry 97 97 98 Oxygen Delivery Method Sepsis Recent Fever Within 48 Hours Sepsis New/Unexplained Change in Mental Status Sepsis Action Taken by Nursing 01/27/25 12:51 01/27/25 13:58 Temperature Temperature Source Pulse Rate 67 71 Pulse Rate [Apical] Pulse Rate from SpO2 Sensor 67 Respiratory Rate 17 Respiratory Effort / Characteristics Respiratory Depth Respiratory Pattern Blood Pressure 117/65 Blood Pressure [Left Arm] Blood Pressure Mean 82 Blood Pressure Mean [Left Arm] Pulse Oximetry 97 Oxygen Delivery Method Sepsis Recent Fever Within 48 Hours Sepsis New/Unexplained Change in Mental Status Sepsis Action Taken by Nursing Laboratory Data 01/27/25 09:02 01/27/25 09:02 Lab Results 01/27/25 01/27/25 01/27/25 Range/Units 09:02 10:18 11:18 WBC 5.17 (4.8-10.8) K/ul RBC 4.12 L (4.20-5.40) M/uL Hgb 13.5 (12.0-16.0) g/dl Hct 39.7 (37.0-47.0) % MCV 96.4 (80.0-100.0) fL MCH 32.8 (25.0-34.0) pg MCHC 34.0 (32.0-36.0) g/dL RDW Std Deviation 42.8 (36.4-46.3) fL RDW Coeff of Patience 12.0 (11.5-14.5) % Plt Count 228 (130-400) K/uL MPV 10.1 (9.4-12.4) fL Immature Gran % (Auto) 0.2 % Neut % (Auto) 63.4 % Lymph % (Auto) 24.8 % Cloud % (Auto) 9.3 % Eos % (Auto) 0.8 % Baso % (Auto) 1.5 % Neut # (Auto) 3.28 (1.40-6.50) K/uL Lymph # (Auto) 1.28 (1.20-3.40) K/uL Cloud # (Auto) 0.48 (0.11-0.59) K/uL Eos # (Auto) 0.04 (0.00-0.50) K/uL Baso # (Auto) 0.08 (0.00-0.20) K/uL Immature Gran # (Auto) 0.01 (0.01-0.20) K/uL PT 10.9 (9.0-12.0) Seconds INR 1.0 (0.9-1.1) Sodium 140 (136-145) mmol/L Potassium 3.7 (3.5-5.1) mmol/L Chloride 103 (98-107) mmol/L Carbon Dioxide 31 (21-32) mmol/L Anion Gap 6 (3-11) BUN 16 (6-23) mg/dl Creatinine 0.82 (0.6-1.2) mg/dl Est Cr Clr Drug Dosing 33.6 ml/min eGFR 69.62 BUN/Creatinine Ratio 19.5 (10-20) Glucose 112 H (70-99(Fasting)) mg/dl Calcium 9.0 (8.6-10.3) mg/dl Total Bilirubin 0.8 (0.2-1.0) mg/dl AST 22 (13-39) U/L ALT 13 (7-52) U/L Alkaline Phosphatase 60 (34-104) U/L Troponin I High Sens < 2.3 < 2.3 (0-14) pg/ml B-Natriuretic Peptide 113 H (0-100) pg/ml Total Protein 7.1 (6.0-8.3) gm/dl Albumin 4.2 (3.4-5.0) gm/dl Globulin 2.9 (2.5-4.0) gm/dl Albumin/Globulin Ratio 1.4 (0.9-2) Lipase 38 (11-82) U/L Urine Color Yellow Urine Appearance Clear (Clear) Urine pH 8.0 H (4.5-7.5) Ur Specific [address] 1.006 (1.000-1.030) Urine Protein Negative (Negative) Urine Glucose (UA) Negative (Negative) Urine Ketones Negative (Negative) Urine Blood Negative (Negative) Urine Nitrite Negative (Negative) Urine Bilirubin Negative (Negative) Urine Urobilinogen Negative (Negative) Ur Leukocyte Esterase Negative (Negative) Imaging Data Radiologist's Impression: Chest X-Ray 01/27/25 08:53 XR chest 1V portable CLINICAL HISTORY: Chest pain, nonspecific. COMPARISON STUDY: Chest March 25, 2024. FINDINGS: Lung volumes are normal. Lungs are clear. There is no pneumothorax or pleural effusion. Cardiac size is stable. Mediastinal contours are normal. There is no evidence for pulmonary edema. IMPRESSION: No acute cardiopulmonary findings. ACT 112: Negative or not required by law. Electronically signed by: Pascual Day M.D. 01/27/2025 9:07 AM Discharge Plan Visit Data Chief Complaint: Chest Pain Stated Complaint: CHEST PAIN ED Provider: Susan Alfredo Discharge Problem: Chest pain Forms Stand Alone Forms: My [facility] Data Prescriptions Prescriptions: No Action atenolol 50 mg tablet 50 mg PO QAM Qty: 90 3RF acetaminophen [Tylenol Arthritis Pain] 650 mg tablet extended release 650 mg PO Q8H Rx Instructions: Unable to verify OTC meds at this date/time. Saccharomyces boulardii 250 mg capsule 250 mg PO DAILY Rx Instructions: Unable to verify OTC meds at this date/time. cholecalciferol (vitamin D3) 2,000 unit tablet 2,000 units PO QAM Rx Instructions: Unable to verify OTC meds at this date/time. cetirizine 10 mg tablet 10 mg PO DAILY PRN (Reason: ALLERGIES) Patient Comments: IN THE EVENING IF I NEED IT Rx Instructions: Unable to verify OTC meds at this date/time. cyanocobalamin (vitamin B-12) 100 mcg tablet 100 mcg PO QAM Rx Instructions: Unable to verify OTC meds at this date/time. polyethylene glycol 3350 17 gram/dose powder 17 g PO QPM Rx Instructions: Unable to verify OTC meds at this date/time. nitroglycerin 0.4 mg tablet, sublingual 0.4 mg SL UD PRN (Reason: chest pain) Qty: 30 3RF Rx Instructions: 0.4 mg SL Q5M FOR UP TO 3 DOSES PRN; isosorbide mononitrate 60 mg tablet extended release 24 hr 60 mg PO QAM Qty: 90 3RF Rx Instructions: Pt unsure of this medication at this date/time. Original Directions: 60mg by mouth once every morning amlodipine 2.5 mg tablet 2.5 mg PO DAILY Qty: 90 3RF pravastatin 80 mg tablet 80 mg PO QPM Qty: 90 3RF omeprazole 20 mg capsule,delayed release(DR/EC) 20 mg PO BID Qty: 180 3RF Rx Instructions: 03/30/2024-Per patient only taking 1x day calcium carbonate 600 mg calcium (1,500 mg) tablet 600 mg PO DAILY Rx Instructions: Unable to verify OTC meds at this date/time. Systane Balance 0.6 % drops 1 drp ophthalmic (eye) DAILY PRN (Reason: Dry Eyes) Rx Instructions: Unable to verify OTC meds at this date/time. Boost 0.04 gram- 1 kcal/mL liquid 1 ea PO DAILY Rx Instructions: Unable to verify OTC meds at this date/time. doxycycline hyclate 100 mg tablet 200 mg PO ONCE Qty: 2 0RF Rx Instructions: eat before taking antibiotic. Filled 01/24/25 x 1 day supply. Unsure if pt has taken this or is holding it for a later procedure. aspirin 81 mg Tablet,Delayed Release (Dr/Ec) 81 mg PO DAILY Rx Instructions: Unable to verify OTC meds at this date/time. Referrals Referrals: Elly Huizar DO [Primary Care Provider] -
[2025-01-27 09:32] LABS: Alanine Aminotransferase 13 U/L (7-52); Albumin Globulin Ratio 1.4 (0.9-2); Albumin Level 4.2 gm/dl (3.4-5.0); Alkaline Phosphatase 60 U/L (34-104); Anion Gap 6 (3-11); Aspartate Aminotransferase 22 U/L (13-39); BUN Creatinine Ratio 19.5 (10-20); Bilirubin,Total 0.8 mg/dl (0.2-1.0); Blood Urea Nitrogen 16 mg/dl (6-23); Carbon Dioxide 31 mmol/L (21-32); Chloride 103 mmol/L (98-107); Creatinine Clr Calc Pharmacy 33.6 ml/min; Globulin 2.9 gm/dl (2.5-4.0); Glucose 112 mg/dl (70-99(Fasting)); Lipase 38 U/L (11-82); Potassium 3.7 mmol/L (3.5-5.1); Sodium 140 mmol/L (136-145); Total Protein 7.1 gm/dl (6.0-8.3)
[2025-01-27 09:38] LABS: Troponin I High Sensitivity < 2.3 pg/ml (0-14)
[2025-01-27 09:44] LABS: Prothrombin Time 10.9 Seconds (9.0-12.0)
[2025-01-27 11:36] LABS: Appearance Urine Clear (Clear); Bilirubin Urine Negative (Negative); Blood Urine Negative (Negative); Color Urine Yellow; Glucose Urine UA Negative (Negative); Ketones Urine Negative (Negative); Leukocyte Esterase Urine Negative (Negative); Nitrite Urine Negative (Negative); Protein Urine Negative (Negative); Specific Gravity Urine 1.006 (1.000-1.030); Urobilinogen Urine Negative (Negative)
--- NOTE | 2025-01-27 12:47 | Electrocardiogram Report ---
Test Reason : Blood Pressure : */* mmHG Vent. Rate : 88 BPM Atrial Rate : 88 BPM P-R Int : 180 ms QRS Dur : 86 ms QT Int : 344 ms P-R-T Axes : 34 0 53 degrees QTcB Int : 416 ms Normal sinus rhythm Possible Old Anteroseptal infarct 15-Nov-2022) Abnormal ECG When compared with ECG of 25-Mar-2024 12:51, No significant change was found Confirmed by Tommy Womack ([id number]) on 01/27/2025 12:47:05 PM Referred By: Confirmed By: Tommy Womack
--- NOTE | 2025-01-27 14:22 | History & Physical Report ---
Date of Service January 27, 2025 Assessment & Plan (1) Chest pain: Plan: Acute -Heart score is 4, moderate risk given her history and is not unreasonable to monitor overnight in obs -Observation to telemetry bed -Cardiac/heart healthy diet -Continue aspirin, atenolol and pravastatin -stress echo would be preferable, however pt doesn't feel she can walk on treadmill, therefore will need to defer until a dobutamine stress echo can be performed -transthoracic echo ordered -continue imdur, PRN SL nitro ordered -consult cardiology, Dr. Womack covering this weekend, appreciate recommendations -Heart score is 4, moderate risk given her history and is not unreasonable to monitor overnight in obs (2) CAD (coronary artery disease): Plan: CAD/HTN/HLD -continue imdur, atenolol, aspirin, pravastatin and amlodipine (3) GERD (gastroesophageal reflux disease): Plan: Chronic -change omeprazole to protonix per hospital formulary Plan DVT ppx with Lovenox. AM labs ordered including cbc, bmp, and mag level. Above plan of care has been d/w Dr. Nathan who will also see and evaluate this patient. Further order to be implemented as clinically warranted by attending. History of Present Illness Chief Complaint: Chest pain Primary Care Provider: DO Bianca Lucero is an 84 yo F with a pmhx of CAD, HTN, fibromyalgia, IBS and GERD who presents to the ER today accompanied by her c/o chest pain. She reports having episodes of chest discomfort earlier in the week, then that seemed to dissipate. She then reports having chest discomfort yesterday that bothered her off and on all day. She describes it as a dullness, rated a 5/10 and concentrated midsternal with radiation to the left side of her chest, into her neck and left shoulder. She denies associated nausea, diaphoresis, shortness of breath, numbness or tingling. She reports a h/o CAD s/p stenting approx 25 years ago. She follows routinely with Dr. Carlson and last saw him in December. She continues on a baby aspirin and high dose pravastatin. She had a cardiac catheterization by Dr. Travis "years ago" which she was told she had 3 vessels with blockages but they were not large enough to stent at the time. She took 3 nitro tablets while at home today and she initially felt they may have provided some relief but it was transient and the pain/discomfort has returned at the same intensity and quality as before. She denies any aggravating factors including exertion, eating, or movement. In the ER, her EKG is nonacute. She has had two HS troponins that have come back <2.3 both times and her CXR is normal. She has been referred to hospital medicine team for admission for chest pain rule out. Allergies Allergy/AdvReac Type Severity Reaction Status Date / Time atorvastatin Allergy Unknown ? PT NOT Verified 01/24/25 09:54 SURE cat dander Allergy Unknown "THEY SAID Verified 01/24/25 09:54 I WAS ALLERGIC TO CATS" clopidogrel [From Plavix] Allergy Unknown Hives Verified 01/24/25 09:54 corn Allergy Unknown ALLERGY Verified 01/24/25 09:54 TESTING SHOWED, PT REPORTS REACTION "NOTHING REALLY" duloxetine [From Cymbalta] Allergy Unknown ? PT NOT Verified 01/24/25 09:54 SURE gabapentin [From Neurontin] Allergy Unknown ? PT NOT Verified 01/24/25 09:54 SURE grass pollen Allergy Unknown 5 Verified 01/24/25 09:54 DIFFERENT KINDS OF GRASS- " I HAVE ALLERGIES ALL THE TIME" pregabalin [From Lyrica] Allergy Unknown ? PT NOT Verified 01/24/25 09:54 SURE simvastatin Allergy Unknown ? PT NOT Verified 01/24/25 09:54 SURE tramadol Allergy Unknown ? PT NOT Verified 01/24/25 09:54 SURE house dust AdvReac Unknown " I HAVE Verified 01/24/25 09:54 ALLERGIES ALL THE TIME" - VOICE HOARSENESS morphine AdvReac Unknown Nausea Verified 01/24/25 09:54 Tetracyclines AdvReac Unknown Nausea Verified 01/24/25 09:54 PERFUMES Allergy Unknown "SENSITIVE Uncoded 01/24/25 09:54 TOO" Home Medications Medication Instructions Recorded Confirmed Type Saccharomyces boulardii 250 mg 250 mg PO DAILY 06/15/19 01/27/25 History capsule cetirizine 10 mg tablet 10 mg PO DAILY PRN ALLERGIES 06/16/19 01/27/25 History cholecalciferol (vitamin D3) 50 2,000 units PO QAM 06/16/19 01/27/25 History mcg (2,000 unit) tablet cyanocobalamin (vitamin B-12) 100 100 mcg PO QAM 01/07/21 01/27/25 History mcg tablet acetaminophen 650 mg 650 mg PO Q8H 04/18/21 01/27/25 History tablet,extended release (Tylenol Arthritis Pain) polyethylene glycol 3350 17 17 g PO QPM constipation 10/15/21 01/27/25 History gram/dose oral powder calcium carbonate 600 mg PO DAILY 04/05/24 01/27/25 History food supplemt, lactose-reduced 1 ea PO DAILY 04/05/24 01/27/25 History 0.04 gram-1 kcal/mL oral liquid (Boost) propylene glycol 0.6 % eye drops 1 drp ophthalmic (eye) DAILY PRN 04/05/24 01/27/25 History (Systane Balance) Dry Eyes atenolol 50 mg tablet 50 mg PO QAM #90 tabs 06/16/24 01/27/25 Rx amlodipine 2.5 mg tablet 2.5 mg PO DAILY #90 tabs 07/11/24 01/27/25 Rx omeprazole 20 mg capsule,delayed 20 mg PO BID #180 caps 10/10/24 01/27/25 Rx release pravastatin 80 mg tablet 80 mg PO QPM #90 tabs 10/10/24 01/27/25 Rx isosorbide mononitrate 60 mg 60 mg PO QAM #90 tabs 12/29/24 01/27/25 Rx tablet,extended release 24 hr nitroglycerin 0.4 mg sublingual 0.4 mg sublingual UD PRN chest 12/29/24 01/27/25 Rx tablet pain #30 tabs doxycycline hyclate 100 mg tablet 200 mg (2 x 100 mg) PO ONCE #2 tabs 01/24/25 01/27/25 Rx aspirin 81 mg tablet,delayed 81 mg PO DAILY 01/27/25 01/27/25 History release Past Med/Surg History Problem List (Updated 01/27/25 @ 14:16 by Tamia Padilla PA-C) Insomnia CAD (coronary artery disease) Arthritis Chronic constipation Fibromyalgia Impaired fasting glucose Peripheral neuropathy Rosacea Thoracic spondylosis IBS (irritable bowel syndrome) GERD (gastroesophageal reflux disease) Medical History Chest pain syndrome Poor historian Seasonal allergies Dry eyes Nausea after anesthesia Perineural cysts Raynaud phenomenon Osteoporosis Lumbar canal stenosis Irritable bowel syndrome Hypertension Hyperlipidemia Chronic hoarseness Surgical History Hx laparoscopic cholecystectomy S/P LASIK surgery Hx of dilation and curettage H/O colonoscopy Hx of cardiac cath Hx of cataract surgery H/O abdominal surgery Family History Father Acute myocardial infarction Myocardial infarction Brother Coronary heart disease Hypertension Unknown FHx: allergies FH: deafness or hearing loss Arteriosclerotic cardiovascular disease Cardiac disorder Sinusitis Cancer Hypertension Stroke Asthma Aunt Breast cancer Mother Myocardial infarction Uncle Myocardial infarction Grandfather (Paternal) Prostate cancer Grandmother Family history of diabetes mellitus Denies family history of Ovarian cancer Colorectal cancer Social History Smoking Status: Never smoker Second Hand Exposure: No; Do You Dip or Chew Tobacco: No; Hx Alcohol Use: No Hx Substance Use: No Preferred Language: Lao Communication Ability: Effective Visual Impairment: Limited Hearing Ability: Use of Hearing Aid Tumbler Tender Required: No Beliefs That Will Affect Care: None marital status: Current Living Situation: Spouse current occupational status: retired How many Children do You have: 1 Feels Safe at Home: Yes Childhood Exposure to Second-Hand Smoke: Yes caffeine: No Dental Care, Regularly: Yes Physical Activity Frequency: 1-2 Times per Week Seatbelt Use: always Sunscreen Use: Yes Assistive Devices: Denture - Upper, Glasses and Hearing Aid - Bilateral Review of Systems 2 Review of Systems: All systems reviewed and are unremarkable except as noted in HPI and below. Denies fever, chills, fatigue, headache, nasal congestion, sore throat, cough, shortness of breath, palpitations, orthopnea, PND, abdominal pain, n/v/d, constipation, dysuria, hematuria, frequency, back pain, joint pain or swelling, easy bruising or bleeding, skin lesions or rashes. Physical Exam 2 Physical Exam: GENERAL: 84 yo thin frail elderly WF. No distress. EYES: EOMI. PERRLA. Anicteric. HENT: Moist mucous membranes. No cervical lymphadenopathy. LUNGS: Clear to auscultation bilaterally. No accessory muscle use. No W/R/R. CARDIOVASCULAR: Regular rate and rhythm. ABDOMEN: Soft, non-tender and non-distended. Bowel sounds normoactive x 4 quad. EXTREMITIES: No edema. Non-tender. Peripheral pulses +2/4. NEUROLOGIC: A&O x3. No focal neurological deficits. CN II-XII grossly intact. PSYCHIATRIC: Cooperative. Appropriate mood and affect. SKIN: Warm, dry, intact. No rashes or lesions. Results & Data Results & Data Vital Signs (Past 12 Hours) Vital Signs Temp Pulse Pulse Resp BP BP Pulse Ox 01/27/25 13:58 71 01/27/25 12:51 67 17 117/65 97 01/27/25 12:09 65 17 117/65 98 01/27/25 11:48 90 23 132/66 97 01/27/25 11:30 85 20 125/80 97 01/27/25 11:00 130/76 01/27/25 09:56 84 17 99 01/27/25 09:13 91 H 01/27/25 09:08 94 H 22 148/93 H 100 01/27/25 09:08 100 01/27/25 08:46 36.5 C 95 H 16 169/103 H 100 O2 Del Method 01/27/25 13:58 01/27/25 12:51 01/27/25 12:09 01/27/25 11:48 01/27/25 11:30 01/27/25 11:00 01/27/25 09:56 Room Air 01/27/25 09:13 01/27/25 09:08 Room Air 01/27/25 09:08 Room Air 01/27/25 08:46 Room Air Laboratory Results 01/27/25 09:02 01/27/25 09:02 Diagnostic Findings Chest X-Ray 01/27/25 08:53 XR chest 1V portable CLINICAL HISTORY: Chest pain, nonspecific. COMPARISON STUDY: Chest March 25, 2024. FINDINGS: Lung volumes are normal. Lungs are clear. There is no pneumothorax or pleural effusion. Cardiac size is stable. Mediastinal contours are normal. There is no evidence for pulmonary edema. IMPRESSION: No acute cardiopulmonary findings. ACT 112: Negative or not required by law. Electronically signed by: Pascual Day M.D. 01/27/2025 9:07 AM ECG Additional Comments: NSR, no acute ST-T wave changes Code Status & VTE Plan Code Status DNR/DNI confirmed by pt and at bedside PG Care Time/CCT Total # of Minutes Spent Total Time Spent with Patient: Total time spent is greater than 50% in coordination of care (as documented) at patient's floor/unit and/or counseling patient: 80 minutes Coding Level of Care Code 45499 INT INP/OBS CARE 3/75MIN Diagnoses Other chest pain R07.89 Chest pain type: other chest pain Coronary artery disease involving ruby coronary artery of ruby heart without angina pectoris I25.10 Coronary Disease-Associated Artery/Lesion type: ruby artery [place] vs. transplanted heart: ruby heart Associated angina: without angina GERD (gastroesophageal reflux disease) K21.9 (1) Chest pain Chest pain type: other chest pain Qualified Code(s): R07.89 - Other chest pain (2) CAD (coronary artery disease) Coronary Disease-Associated Artery/Lesion type: ruby artery [place] vs. transplanted heart: ruby heart Associated angina: without angina Qualified Code(s): I25.10 - Atherosclerotic heart disease of ruby coronary artery without angina pectoris
[2025-01-27] MEDS ORDERED: MAGNESIUM HYDROXIDE SUSP 30 ML UDC PO PRN (16:37)
[2025-01-27] MEDS ORDERED: ONDANSETRON INJ 2 MG/ML 2 ML VIAL IV PRN (16:37)
[2025-01-27] MEDS ORDERED: NITROGLYCERIN SL 0.4 MG/TAB TAB SL PRN (16:37)
[2025-01-27] MEDS ORDERED: PROPYLENE GLYCOL 0.6% OP PRN (16:37)
[2025-01-27] MEDS ORDERED: ALUMINUM/MAGNESIUM SUSP 30 ML UDC PO PRN (16:37)
[2025-01-27] MEDS: POLYETHYLENE (MIRALAX) 17 GM PACK PO SCH (20:32)
[2025-01-27] MEDS: PRAVASTATIN SOD 40 MG TAB PO SCH (20:32)
[2025-01-27] MEDS: ACETAMINOPHEN 325 MG TAB PO PRN (20:32)
[2025-01-28 06:56] LABS: Basophils # (auto) 0.08 K/uL (0.00-0.20); Basophils % (auto) 1.2 %; Eosinophils # (auto) 0.09 K/uL (0.00-0.50); Eosinophils % (auto) 1.4 %; Hematocrit (blood only) 42.6 % (37.0-47.0); Hemoglobin 14.2 g/dl (12.0-16.0); Immature Granulocytes # (auto) 0.02 K/uL (0.01-0.20); Immature Granulocytes % (auto) 0.3 %; Lymphocytes # (auto) 1.59 K/uL (1.20-3.40); Lymphocytes % (auto) 23.9 %; Mean Corpuscular Hemoglobin 32.1 pg (25.0-34.0); Mean Corpuscular Hgb Conc 33.3 g/dL (32.0-36.0); Mean Corpuscular Volume 96.4 fL (80.0-100.0); Mean Platelet Volume 10.2 fL (9.4-12.4); Monocytes # (auto) 0.64 K/uL (0.11-0.59); Monocytes % (auto) 9.6 %; Neutrophils # (auto) 4.24 K/uL (1.40-6.50); Neutrophils % (auto) 63.6 %; Platelet Count 249 K/uL (130-400); RDW Standard Deviation 42.8 fL (36.4-46.3); Red Blood Count 4.42 M/uL (4.20-5.40); White Blood Count 6.66 K/ul (4.8-10.8)
[2025-01-28 07:18] LABS: BUN Creatinine Ratio 14.5 (10-20); Calcium 9.6 mg/dl (8.6-10.3); Creatinine Clr Calc Pharmacy 33.2 ml/min; Magnesium 2.1 mg/dl (1.7-2.4); Potassium 3.7 mmol/L (3.5-5.1)
[2025-01-28 07:25] LABS: Troponin I High Sensitivity 3.9 pg/ml (0-14)
[2025-01-28] MEDS: CYANOCOBALAMIN (B-12) 100 MCG TABLET PO SCH (08:44)
[2025-01-28] MEDS: amLODIPine BESYLATE 5 MG TAB PO SCH (08:44)
[2025-01-28] MEDS: ENOXAPARIN INJ 30 MG/0.3 ML SYR SQ SCH (08:45)
[2025-01-28] MEDS: PANTOprazole 40 MG TAB PO SCH (08:45)
[2025-01-28] MEDS: ISOSORBIDE MONO EXTENDED REL 60 MG TABCR PO SCH (08:45)
[2025-01-28] MEDS: ATENOLOL 50 MG TABLET PO SCH (08:47)
[2025-01-28] MEDS: CHOLECALCIFEROL 25 MCG (1000 UNITS) TAB PO SCH (08:47)
[2025-01-28] MEDS: ASPIRIN 81 MG ECTAB PO SCH (08:47)
--- NOTE | 2025-01-28 08:53 | XCELERA ---
[id number] \\[email or web address]\[id number]
--- NOTE | 2025-01-28 12:19 | Cardiology Consultation ---
Date of Consultation January 28, 2025 Assessment & Plan (1) Exertional chest pain: (2) CAD (coronary artery disease): (3) History of placement of stent in LAD coronary artery: Plan 84-year-old woman with known coronary artery disease experiencing intermittent exertional chest discomfort, not reproduced on ambulating the hallways today. No evidence of acute coronary syndrome, however her symptoms could be anginal, perhaps related to hypertensive blood pressure response to activity resulting in subendocardial ischemia. She is unable to walk on a treadmill due to sciatica and arthritic issues. Since she has a history of known coronary artery disease pharmacologic stress st udy such as dobutamine stress echo might well demonstrate ischemia at high workloads, but this would not necessarily confirm that her current symptoms are due to occlusive coronary disease. In particular, since symptoms were not reproduced walking at a modest pace in the hallway today, it would seem that she is unlikely to have lifestyle limiting angina presently that would benefit from revascularization. However, etiology of her symptoms remains unclear, as such recommended that she remain on telemetry overnight and that she report any recurrence of chest discomfort, at which time a prompt ECG could be obtained to further elucidate whether her symptoms represent myocardial ischemia. In the absence of further symptoms or evidence of lifestyle limiting angina, continued conservative manag ement with ongoing addressing of vascular risk factors is appropriate. Case discussed with Dr. Nathan. Will ask Dr. Carlson to check in on the patient tomorrow with further recommendations (he follows her as an outpatient). History of Present Illness Reason for Consultation: chest pain, h/o CAD, known to Dr. Carlson Requesting Physician: Jesus Nathan Attending Physician: Jesus Nathan History of Present Illness 84-year-old woman with coronary artery disease (LAD stent 1999, patent stent 2009 and 2015), who has been experiencing exertional chest and left shoulder and arm discomfort over the past several days. Of note, cardiology visits with Dr. Carlson document similar exertional left arm discomfort as a potential low-level anginal symptom occurring sporadically. Over the past several days, she notes the discomfort occurs with some activities but not others, at times she has no symptoms despite participating in activities at the high end of her usual exertion. No epiphenomenon of dyspnea, diaphoresis, palpitations, or lightheadedness. No rest symptoms. She believes she may've had some recurrent symptoms last evening, but none overnight or this morning. Cardiology data: Troponin values less than 2.3, less than 2.3, 3.9. ECG showed sinus rhythm with possible old anteroseptal infarct (PRWP), no ST abnormalities and no change compared with 03/25/2024 study. Echocardiogram showed EF 55-60% with normal wall motion, mild LVH with diastolic dysfunction, mild /mild to moderate MR/mild TR/mild pulmonary hypertension. Compared with 2017 study, mild /PHT now seen, otherwise unchanged. Stress echocardiogram 2020 negative for myocardial ischemia at 83% maximum predicted heart rate. She denies any chest pain, dyspnea, or other symptoms currently. We ambulated the hallway together at a moderate pace and she had no dyspnea, chest discomfort, or other symptoms. Telemetry showed sinus rhythm at 70-90 bpm overnight. Allergies Allergy/AdvReac Type Severity Reaction Status Date / Time atorvastatin Allergy Unknown ? PT NOT Verified 01/24/25 09:54 SURE cat dander Allergy Unknown "THEY SAID Verified 01/24/25 09:54 I WAS ALLERGIC TO CATS" clopidogrel [From Plavix] Allergy Unknown Hives Verified 01/24/25 09:54 duloxetine [From Cymbalta] Allergy Unknown ? PT NOT Verified 01/24/25 09:54 SURE gabapentin [From Neurontin] Allergy Unknown ? PT NOT Verified 01/24/25 09:54 SURE grass pollen Allergy Unknown 5 Verified 01/24/25 09:54 DIFFERENT KINDS OF GRASS- " I HAVE ALLERGIES ALL THE TIME" perfume Allergy Unknown Unknown Verified 01/27/25 16:40 pregabalin [From Lyrica] Allergy Unknown ? PT NOT Verified 01/24/25 09:54 SURE simvastatin Allergy Unknown ? PT NOT Verified 01/24/25 09:54 SURE tramadol Allergy Unknown ? PT NOT Verified 01/24/25 09:54 SURE house dust AdvReac Unknown " I HAVE Verified 01/24/25 09:54 ALLERGIES ALL THE TIME" - VOICE HOARSENESS morphine AdvReac Unknown Nausea Verified 01/24/25 09:54 Tetracyclines AdvReac Unknown Nausea Verified 01/24/25 09:54 Home Medications Medication Instructions Recorded Confirmed Type Saccharomyces boulardii 250 mg 250 mg PO DAILY 06/15/19 01/27/25 History capsule cetirizine 10 mg tablet 10 mg PO DAILY PRN ALLERGIES 06/16/19 01/27/25 History cholecalciferol (vitamin D3) 50 2,000 units PO QAM 06/16/19 01/27/25 History mcg (2,000 unit) tablet cyanocobalamin (vitamin B-12) 100 100 mcg PO QAM 01/07/21 01/27/25 History mcg tablet acetaminophen 650 mg 650 mg PO Q8H 04/18/21 01/27/25 History tablet,extended release (Tylenol Arthritis Pain) polyethylene glycol 3350 17 17 g PO QPM constipation 10/15/21 01/27/25 History gram/dose oral powder calcium carbonate 600 mg PO DAILY 04/05/24 01/27/25 History food supplemt, lactose-reduced 1 ea PO DAILY 04/05/24 01/27/25 History 0.04 gram-1 kcal/mL oral liquid (Boost) propylene glycol 0.6 % eye drops 1 drp ophthalmic (eye) DAILY PRN 04/05/24 01/27/25 History (Systane Balance) Dry Eyes atenolol 50 mg tablet 50 mg PO QAM #90 tabs 06/16/24 01/27/25 Rx amlodipine 2.5 mg tablet 2.5 mg PO DAILY #90 tabs 07/11/24 01/27/25 Rx omeprazole 20 mg capsule,delayed 20 mg PO BID #180 caps 10/10/24 01/27/25 Rx release pravastatin 80 mg tablet 80 mg PO QPM #90 tabs 10/10/24 01/27/25 Rx isosorbide mononitrate 60 mg 60 mg PO QAM #90 tabs 12/29/24 01/27/25 Rx tablet,extended release 24 hr nitroglycerin 0.4 mg sublingual 0.4 mg sublingual UD PRN chest 12/29/24 01/27/25 Rx tablet pain #30 tabs doxycycline hyclate 100 mg tablet 200 mg (2 x 100 mg) PO ONCE #2 tabs 01/24/25 01/27/25 Rx aspirin 81 mg tablet,delayed 81 mg PO DAILY 01/27/25 01/27/25 History release Patient History Medical History Chest pain syndrome Poor historian Seasonal allergies " I HAVE ALLERGIES ALL THE TIME" - HOARSENESS/SNEEZING Dry eyes Nausea after anesthesia Perineural cysts UNKNOWN, PT DID NOT REPORT THIS UPON PAT PHONE INTERVIEW Raynaud phenomenon Osteoporosis Lumbar canal stenosis PT REPORTS CHRONIC BACK PAIN WITH PAIN BETWEEN THE SHOULDER BLADES Irritable bowel syndrome Hypertension Hyperlipidemia Chronic hoarseness PT REPORTS " I HAVE ALLERGIES ALL THE TIME" HOARSENESS , SNEEZING Surgical History Hx laparoscopic cholecystectomy S/P LASIK surgery left Hx of dilation and curettage 1979 H/O colonoscopy Hx of cardiac cath HX 1999 CHEST PAINS - STENT X1 - MOLLY Hx of cataract surgery bilateral H/O abdominal surgery Family History Father Acute myocardial infarction Myocardial infarction Brother Coronary heart disease Hypertension Unknown FHx: allergies FH: deafness or hearing loss Arteriosclerotic cardiovascular disease Cardiac disorder Sinusitis Cancer Hypertension Stroke Asthma Aunt Breast cancer paternal Mother Myocardial infarction Uncle Myocardial infarction Grandfather (Paternal) Prostate cancer Grandmother Family history of diabetes mellitus Denies family history of Ovarian cancer Colorectal cancer Social History Smoking Status: Never smoker Second Hand Exposure: No; Do You Dip or Chew Tobacco: No; Hx Alcohol Use: No Hx Substance Use: No Preferred Language: Angolan Communication Ability: Effective Visual Impairment: Limited Hearing Ability: Use of Hearing Aid Auto Research Engineer Required: No Beliefs That Will Affect Care: None marital status: Current Living Situation: Spouse current occupational status: retired How many Children do You have: 1 Feels Safe at Home: Yes Safety Concerns: Feels Safe At This Time Childhood Exposure to Second-Hand Smoke: Yes caffeine: No Dental Care, Regularly: Yes Physical Activity Frequency: 1-2 Times per Week Seatbelt Use: always Sunscreen Use: Yes Assistive Devices: Denture - Upper, Glasses and Hearing Aid - Bilateral Assistive Devices Comment: glasses and dentures with patient Physical Exam Physical Exam: Elderly white female in no distress. Afebrile. Mildly hypertensive. Pulse 80 bpm and regular. Respirations 16 and unlabored. Skin: no ecchymoses or generalized lesions. HEENT: unremarkable. Neck: JVP at the clavicle at 90 degrees, no carotid bruits. Lungs: clear. Cardiac: regular rhythm, readily audible aortic closure sound, 2/6 systolic ejection murmur right upper sternal border, 2/6 apical holosystolic murmur, no diastolic murmur. Abdomen: benign. Extremities: no edema, pulses intact. Neurologic: normal affect and conversation, nonfocal. Results & Data Vital Signs (Past 12 Hours) Vital Signs Temp Pulse Pulse Resp BP Pulse Ox O2 Del Method 01/28/25 09:59 Room Air 01/28/25 08:04 97.5 F L 80 16 150/83 H 100 Room Air 01/28/25 07:25 88 01/28/25 04:08 97.9 F 80 18 144/79 H 97 Room Air Laboratory Results Normal CBC. Normal electrolytes, BUN 12, creatinine 0.83. Troponins as per HPI. Diagnostic Findings ECG as per HPI. Chest x-ray unremarkable. PG Care Time/CCT Total # of Minutes Spent Total Time Spent with Patient: Total time spent is greater than 50% in coordination of care (as documented) at patient's floor/unit and/or counseling patient: Coding Level of Care Code 87826 IN/OBS CONSULT LVL 4,60M Diagnoses Exertional chest pain R07.9 Coronary artery disease involving [place]afski coronary artery of andreafski heart without angina pectoris I25.10 Coronary Disease-Associated Artery/Lesion type: [place]ski artery [place] vs. transplanted heart: andreafski heart Associated angina: without angina History of placement of stent in LAD coronary artery Z95.5 (2) CAD (coronary artery disease) Coronary Disease-Associated Artery/Lesion type: [place] artery [place] vs. transplanted heart: andreafski heart Associated angina: without angina Qualified Code(s): I25.10 - Atherosclerotic heart disease of [place] coronary artery without angina pectoris
--- NOTE | 2025-01-28 22:53 | Hospitalist Progress Note ---
Date of Service January 28, 2025 Assessment & Plan (1) Chest pain: Plan: Acute -Heart score is 4, moderate risk given her history and is not unreasonable to monitor overnight in obs -Observation to telemetry bed -Cardiac/heart healthy diet -Continue aspirin, atenolol and pravastatin -stress echo would be preferable, however pt doesn't feel she can walk on treadmill, therefore will need to defer until a dobutamine stress echo can be performed -transthoracic echo ordered -continue imdur, PRN SL nitro ordered -consult cardiology, Dr. Womack covering this weekend, appreciate recommendations -Heart score is 4, moderate risk given her history and is not unreasonable to monitor overnight in obs Plan is to check for chest pain, if this reccurs, then will do ekg reviewed labs (2) CAD (coronary artery disease): Plan: CAD/HTN/HLD -continue imdur, atenolol, aspirin, pravastatin and amlodipine (3) GERD (gastroesophageal reflux disease): Plan: Chronic -change omeprazole to protonix per hospital formulary Plan DVT ppx with Lovenox Admission and Anticipated Discharge Date Admission Date: January 27, 2025 Subjective Patient reports no longer having chest pain. Physical Exam Physical Exam: GENERAL: 84 yo thin frail elderly WF. No distress. EYES: EOMI. PERRLA. Anicteric. HENT: Moist mucous membranes. No cervical lymphadenopathy. LUNGS: Clear to auscultation bilaterally. No accessory muscle use. No W/R/R. CARDIOVASCULAR: Regular rate and rhythm. ABDOMEN: Soft, non-tender and non-distended. Bowel sounds normoactive x 4 quad. EXTREMITIES: No edema. Non-tender. Peripheral pulses +2/4. NEUROLOGIC: A&O x3. No focal neurological deficits. CN II-XII grossly intact. PSYCHIATRIC: Cooperative. Appropriate mood and affect. SKIN: Warm, dry, intact. No rashes or lesions. Results & Data Results & Data Vital Signs (Past 12 Hours) Vital Signs Temp Pulse Pulse Resp BP BP Pulse Ox 01/28/25 20:02 36.6 C 70 18 122/72 99 01/28/25 16:37 01/28/25 15:13 36.5 C 77 18 129/71 98 01/28/25 14:06 67 01/28/25 12:46 36.3 C L 67 16 125/72 99 Pulse Ox O2 Del Method O2 Del Method 01/28/25 20:02 Room Air 01/28/25 16:37 95 Room Air 01/28/25 15:13 Room Air 01/28/25 14:06 01/28/25 12:46 Room Air PG Care Time/CCT Total # of Minutes Spent Total Time Spent with Patient: Total time spent is greater than 50% in coordination of care (as documented) at patient's floor/unit and/or counseling patient: Coding Level of Care Code 25197 SUB INP/OBS CARE 3/50MIN Diagnoses Other chest pain R07.89 Chest pain type: other chest pain Coronary artery disease involving [place] coronary artery of [place] heart without angina pectoris I25.10 Associated angina: without angina Coronary Disease-Associated Artery/Lesion type: [place] artery [place] vs. transplanted heart: [place] heart GERD (gastroesophageal reflux disease) K21.9 (1) Chest pain Chest pain type: other chest pain Qualified Code(s): R07.89 - Other chest pain (2) CAD (coronary artery disease) Associated angina: without angina Coronary Disease-Associated Artery/Lesion type: [place] artery [place] vs. transplanted heart: [place] heart Qualified Code(s): I25.10 - Atherosclerotic heart disease of [place] coronary artery without angina pectoris
[2025-01-28 23:16] VITALS: RESP 16
[2025-01-29 06:55] LABS: Hemoglobin 12.3 g/dl (12.0-16.0); Mean Corpuscular Hemoglobin 32.8 pg (25.0-34.0); Mean Corpuscular Hgb Conc 34.2 g/dL (32.0-36.0); Mean Platelet Volume 10.4 fL (9.4-12.4); Platelet Count 198 K/uL (130-400); RDW Coefficient of Variation 11.9 % (11.5-14.5); RDW Standard Deviation 41.7 fL (36.4-46.3); Red Blood Count 3.75 M/uL (4.20-5.40); White Blood Count 4.05 K/ul (4.8-10.8)
[2025-01-29 07:09] LABS: BUN Creatinine Ratio 15.5 (10-20); Calcium 8.7 mg/dl (8.6-10.3); Creatinine Clr Calc Pharmacy 32.8 ml/min; Potassium 3.8 mmol/L (3.5-5.1)
[2025-01-29 11:04] VITALS: TEMP 98.1; O2SAT 97
--- NOTE | 2025-01-29 11:42 | Discharge Summary ---
Discharge Summary Date of Service January 29, 2025 Principal Dx & Hospital Course #1 = Principal Diagnosis (1) Chest pain: Acute -Heart score is 4, moderate risk given her history and is not unreasonable to monitor overnight in obs -Observation to telemetry bed -Cardiac/heart healthy diet -Continue aspirin, atenolol and pravastatin -stress echo would be preferable, however pt doesn't feel she can walk on treadmill, therefore will need to defer until a dobutamine stress echo can be performed -transthoracic echo ordered -continue imdur, PRN SL nitro ordered -consult cardiology, Dr. Womack covering this weekend, appreciate recommendations -Heart score is 4, moderate risk given her history and is not unreasonable to monitor overnight in obs Plan is to check for chest pain, if this reccurs, then will do ekg reviewed labs (2) CAD (coronary artery disease): CAD/HTN/HLD -continue imdur, atenolol, aspirin, pravastatin and amlodipine (3) GERD (gastroesophageal reflux disease): Chronic -change omeprazole to protonix per hospital formulary Plan DVT ppx with Lovenox Admission HPI Per Admitting Provider Bianca is an 84 yo F with a pmhx of CAD, HTN, fibromyalgia, IBS and GERD who presents to the ER today accompanied by her c/o chest pain. She reports having episodes of chest discomfort earlier in the week, then that seemed to dissipate. She then reports having chest discomfort yesterday that bothered her off and on all day. She describes it as a dullness, rated a 5/10 and concentrated midsternal with radiation to the left side of her chest, into her neck and left shoulder. She denies associated nausea, diaphoresis, shortness of breath, numbness or tingling. She reports a h/o CAD s/p stenting approx 25 years ago. She follows routinely with Dr. Carlson and last saw him in December. She continues on a baby aspirin and high dose pravastatin. She had a cardiac catheterization by Dr. Tarvis "years ago" which she was told she had 3 vessels with blockages but they were not large enough to stent at the time. She took 3 nitro tablets while at home today and she initially felt they may have provided some relief but it was transient and the pain/discomfort has returned at the same intensity and quality as before. She denies any aggravating factors includi ng exertion, eating, or movement. In the ER, her EKG is nonacute. She has had two HS troponins that have come back <2.3 both times and her CXR is normal. She has been referred to hospital medicine team for admission for chest pain rule out. Discharge Exam GENERAL: 84 yo thin frail elderly WF. No distress. EYES: EOMI. PERRLA. Anicteric. HENT: Moist mucous membranes. No cervical lymphadenopathy. LUNGS: Clear to auscultation bilaterally. No accessory muscle use. No W/R/R. CARDIOVASCULAR: Regular rate and rhythm. ABDOMEN: Soft, non-tender and non-distended. Bowel sounds normoactive x 4 quad. EXTREMITIES: No edema. Non-tender. Peripheral pulses +2/4. NEUROLOGIC: A&O x3. No focal neurological deficits. CN II-XII grossly intact. PSYCHIATRIC: Cooperative. Appropriate mood and affect. SKIN: Warm, dry, intact. No rashes or lesions. Discharge Plan Discharge Items Reason For Visit: CHEST PAIN Discharge Diagnosis: chest pain Non-emergency contact: Primary Care Provider Call non-emergency contact if: you have any medication questions Follow-up/Referrals: Elly Huizar DO [Primary Care Provider] - 02/08/25 11:00 am Diet: Heart Healthy Addtl Attending Provider Instructions: You were evaluated for chest pain. Thankfully, Dr. Carlson examined you and deemed this to be not be from your heart. HE recommends you continue on your current medications. Followup with PCP in 1-2 weeks. Pending Studies at Discharge: No Stand-Alone Forms: My [facility], Smoking Cessation Medications and DC Order Prescriptions: Continued atenolol 50 mg tablet 50 mg PO QAM Qty: 90 3RF acetaminophen [Tylenol Arthritis Pain] 650 mg tablet extended release 650 mg PO Q8H Rx Instructions: Unable to verify OTC meds at this date/time. Saccharomyces boulardii 250 mg capsule 250 mg PO DAILY Rx Instructions: Unable to verify OTC meds at this date/time. cholecalciferol (vitamin D3) 2,000 unit tablet 2,000 units PO QAM Rx Instructions: Unable to verify OTC meds at this date/time. cetirizine 10 mg tablet 10 mg PO DAILY PRN (Reason: ALLERGIES) Patient Comments: IN THE EVENING IF I NEED IT Rx Instructions: Unable to verify OTC meds at this date/time. cyanocobalamin (vitamin B-12) 100 mcg tablet 100 mcg PO QAM Rx Instructions: Unable to verify OTC meds at this date/time. polyethylene glycol 3350 17 gram/dose powder 17 g PO QPM Rx Instructions: Unable to verify OTC meds at this date/time. nitroglycerin 0.4 mg tablet, sublingual 0.4 mg SL UD PRN (Reason: chest pain) Qty: 30 3RF Rx Instructions: 0.4 mg SL Q5M FOR UP TO 3 DOSES PRN; isosorbide mononitrate 60 mg tablet extended release 24 hr 60 mg PO QAM Qty: 90 3RF Rx Instructions: Pt unsure of this medication at this date/time. Original Directions: 60mg by mouth once every morning amlodipine 2.5 mg tablet 2.5 mg PO DAILY Qty: 90 3RF pravastatin 80 mg tablet 80 mg PO QPM Qty: 90 3RF omeprazole 20 mg capsule,delayed release(DR/EC) 20 mg PO BID Qty: 180 3RF Rx Instructions: 03/30/2024-Per patient only taking 1x day calcium carbonate 600 mg calcium (1,500 mg) tablet 600 mg PO DAILY Rx Instructions: Unable to verify OTC meds at this date/time. Systane Balance 0.6 % drops 1 drp ophthalmic (eye) DAILY PRN (Reason: Dry Eyes) Rx Instructions: Unable to verify OTC meds at this date/time. Boost 0.04 gram- 1 kcal/mL liquid 1 ea PO DAILY Rx Instructions: Unable to verify OTC meds at this date/time. doxycycline hyclate 100 mg tablet 200 mg PO ONCE Qty: 2 0RF Rx Instructions: eat before taking antibiotic. Filled 01/24/25 x 1 day supply. Unsure if pt has taken this or is holding it for a later procedure. aspirin 81 mg Tablet,Delayed Release (Dr/Ec) 81 mg PO DAILY Rx Instructions: Unable to verify OTC meds at this date/time. Admission Data Admit Date/Time: 01/27/25 14:06 Attending Provider: Jesus Nathan Admit Provider: Jesus Nathan Primary Care Provider: Elly Huizar Other Providers: Jesus Nathan; Tommy Womack Hospital Stay Data Consultations 01/27/25 13:38 ED Decision to Admit Stat 01/27/25 16:37 Consult Cardiology Routine Pending Results Patient Have Any Pending Studies at Discharge: No Discharge Instructions Given to Patient (Per Discharging Provider) You were evaluated for chest pain. Thankfully, Dr. Carlson examined you and deemed this to be not be from your heart. HE recommends you continue on your current medications. Followup with PCP in 1-2 weeks. Coding Diagnoses Other chest pain R07.89 Chest pain type: other chest pain Coronary artery disease involving [place] coronary artery of [place] heart without angina pectoris I25.10 Coronary Disease-Associated Artery/Lesion type: [place] artery [place] vs. transplanted heart: [place] heart Associated angina: without angina GERD (gastroesophageal reflux disease) K21.9
[2025-01-29 13:12] VITALS: BP 135/67; PULSE 78
--- NOTE | 2025-01-29 14:41 | Electrocardiogram Report ---
Test Reason : Blood Pressure : */* mmHG Vent. Rate : 82 BPM Atrial Rate : 82 BPM P-R Int : 180 ms QRS Dur : 90 ms QT Int : 362 ms P-R-T Axes : -22 37 59 degrees QTcB Int : 422 ms Sinus rhythm with occasional Premature ventricular complexes Septal infarct (cited on or before 15-Nov-2022) Abnormal ECG When compared with ECG of 27-Jan-2025 08:54, Premature ventricular complexes are now Present Confirmed by Adalberto Carlson ([id number]) on 01/29/2025 2:41:10 PM Referred By: REFERRED SELF Confirmed By: Adalberto Carlson
== END 2025-01-29 13:42 | disposition home or self-care (01) ==
LOC: ED 08:45 → 2N 08:45